=== PATIENT | female | born 1950 | race Caucasian/White ===

== ENCOUNTER → 2016-03-20 | Outpatient (REF) | payer MEDICARE, OTHER ==
[2016-03-20 12:25] LABS: FREE T4 1.08 NG/DL (0.76-1.46)
== END ==
LOC: M LABDRAW1 11:21
PROVIDERS: ATTEND Physician Assistant Medical
DX: E06.3 Autoimmune thyroiditis (principal); E78.00 Pure hypercholesterolemia, unspecified

== ENCOUNTER → 2016-03-27 | Outpatient (CLI) | payer MEDICARE, OTHER ==
--- NOTE | 2016-03-28 10:54 | DEXA ---
AP SPINE L1 - L4 1.057 -1.1 0.3 LT FEMUR TOTAL 0.857 -1.1 0.0 RT FEMUR TOTAL 0.894 -0.9 0.2 TOTAL BODY TOTAL OTHER DUAL FEMUR FRAX* ASSESSMENT Risk factors: History of multiple adult fractures, premature menopause. 10 year probability of fracture Major osteoporotic fracture 14.6 % Hip fracture 1.5 % COMMENTS: There is low bone density of the spine and hips. The density of the spine has decreased 1.6% since the initial exam on 2003. The spine density has decreased 1.2% since the most recent exam on 03/24/2014. The density of the left hip has decreased 4.1% since the initial exam on 2003. The density left hip has decreased 2.0% since the most recent exam on 2014. The density of the right hip has decreased 2.0% since the initial exam on 2003. The density of the right hip has increased 4.4% since the most recent exam on . FOLLOW-UP: Recommendation for the next bone density exam: 2 years. DAVIAN
== END ==
LOC: M WHC 09:22
PROVIDERS: ATTEND Internal Medicine Endocrinology, Diabetes & Metabolism
DX: M85.89 Other specified disorders of bone density and structure, multiple sites (principal)

== ENCOUNTER → 2016-06-20 | Outpatient (CLI) | payer MEDICARE, OTHER ==
--- NOTE | 2016-06-20 13:50 | REPMRS ---
Patient History The patient states she had a clinical breast exam in 2015. Patient is postmenopausal. Family history of colorectal cancer in father at age 72, breast cancer in maternal aunt at age 50 or over, and breast cancer in maternal aunt at age 40. Benign US guided breast biopsy of the left breast, May 09, 2014. Took hormonal contraceptives for 7 years. Taking unspecified hormones for 11 years. Digital Mammo Diagnostic Bilateral: June 20, 2016 - Exam #: [id number] Bilateral CC and MLO view(s) were taken. Technologist: Adrianna Law, Technologist Prior study comparison: March 24, 2015, digital woman screen mammo, performed at [facility]. May 09, 2014, left breast digital mammo diagnostic unilateral performed at [facility]. FINDINGS: There are scattered fibroglandular densities. There is a fairly symmetric fibroglandular pattern in both breasts. There has been no interval development of masses, areas of architectural distortion or clusters of microcalcifications typical of malignancy. ASSESSMENT: BI-RADS/ACR category 2 mammogram. Benign finding(s). Recommendation Routine screening mammogram of both breasts in 1 year (for women over age 40). This mammogram was interpreted with the aid of an FDA-approved computer-aided dectection system. Electronically Signed By: Ata Miranda MD 06/20/16 [id number]
== END ==
LOC: M RAD 12:48
PROVIDERS: ATTEND Family Medicine
DX: N63 Unspecified lump in breast (principal); R92.1 Mammographic calcification found on diagnostic imaging of breast; Z12.31 Encounter for screening mammogram for malignant neoplasm of breast; Z80.3 Family history of malignant neoplasm of breast; Z79.899 Other long term (current) drug therapy

== ENCOUNTER → 2016-09-13 | Outpatient (REF) | payer MEDICARE, OTHER ==
[2016-09-13 11:37] LABS: BASO # 0.1 K/mm3 (0.0-0.2); BASO % 1.1 % (0.0-1.0); EOS # 0.1 K/mm3 (0.0-0.50); LARGE UNSTAINED CELL # 0.1 K/mm3 (0.0-0.4); LARGE UNSTAINED CELL % 1.8 % (0.0-4.0); LYMPH # 1.5 K/mm3 (1.5-4.5); LYMPH % 26.1 % (24.0-44.0); MEAN CORPUSCULAR HEMOGLOBIN 30.9 pg (27.0-33.0); MEAN CORPUSCULAR HGB CONC 34.6 g/dl (32.0-36.5); MEAN CORPUSCULAR VOLUME 89.1 fl (80.0-96.0); MONO # 0.3 K/mm3 (0.0-0.8); MONO % 5.4 % (0.0-5.0); NEUTROPHILS # 3.4 K/mm3 (1.8-7.7); NEUTROPHILS % 63.6 % (36.0-66.0); PLATELET COUNT, AUTOMATED 169 k/mm3 (150-450); WHITE BLOOD COUNT 5.3 K/mm3 (4.0-10.0)
[2016-09-13 12:06] LABS: ALBUMIN 3.9 GM/DL (3.2-5.2); ALBUMIN/GLOBULIN RATIO 1.22 (1.00-1.93); ALKALINE PHOSPHATASE 78 U/L (45-117); ALT/SGPT 26 U/L (12-78); ANION GAP 9 MEQ/L (8-16); AST/SGOT 20 U/L (15-37); BILIRUBIN,TOTAL 0.4 MG/DL (0.2-1.0); BLOOD UREA NITROGEN 21 MG/DL (7-18); CALCIUM LEVEL 8.7 MG/DL (8.8-10.2); CARBON DIOXIDE LEVEL 29 MEQ/L (21-32); CHLORIDE LEVEL 102 MEQ/L (98-107); CHOLESTEROL LEVEL 176 MG/DL (<200); CREATININE FOR GFR 0.82 MG/DL (0.55-1.02); FREE T4 0.99 NG/DL (0.76-1.46); GLOMERULAR FILTRATION RATE > 60.0 (>45); GLUCOSE, FASTING 90 MG/DL (80-110); POTASSIUM SERUM 4.3 MEQ/L (3.5-5.1); SODIUM LEVEL 140 MEQ/L (136-145); TOTAL PROTEIN 7.1 GM/DL (6.4-8.2); TRIGLYCERIDES LEVEL 66 MG/DL (<150)
== END ==
LOC: M LABDRAW1 11:14
PROVIDERS: ATTEND Family Medicine
DX: E78.5 Hyperlipidemia, unspecified (principal); E03.9 Hypothyroidism, unspecified

== ENCOUNTER → 2016-10-11 | Outpatient (REF) | payer MEDICARE, OTHER | LOC: M LAB REF 14:12 | PROVIDERS: ATTEND Physician Assistant | DX: J06.9 Acute upper respiratory infection, unspecified (principal) ==

== ENCOUNTER → 2017-03-14 | Outpatient (CLI) | payer MEDICARE, OTHER ==
[2017-03-14 21:06] LABS: CHOLESTEROL LEVEL 178 MG/DL (<200); CHOLESTEROL RISK RATIO 3.632 (<5); HDL CHOLESTEROL 49 MG/DL (>40); LDL CHOLESTEROL 83.6 MG/DL (<100); NON-HDL-C 129 MG/DL; TRIGLYCERIDES LEVEL 227 MG/DL (<150)
[2017-03-14 21:20] LABS: TOTAL 25(OH) VITAMIN D 37.9 NG/ML (30.0-100.0)
== END ==
LOC: M WUC 14:21
DX: E06.3 Autoimmune thyroiditis (principal); E78.00 Pure hypercholesterolemia, unspecified; E55.9 Vitamin D deficiency, unspecified
CPT/HCPCS: 84443

== ENCOUNTER → 2017-04-29 | Outpatient (REF) | payer MEDICARE, OTHER ==
[2017-04-29 15:32] LABS: HEMATOCRIT 40.5 % (36.0-47.0); HEMOGLOBIN 13.6 g/dl (12.0-16.0); MEAN CORPUSCULAR HEMOGLOBIN 28.3 pg (27.0-33.0); MEAN CORPUSCULAR HGB CONC 33.6 g/dl (32.0-36.5); MEAN CORPUSCULAR VOLUME 84.2 fl (80.0-96.0); PLATELET COUNT, AUTOMATED 200 10^3/uL (150-450); RED BLOOD COUNT 4.81 10^6/uL (4.00-5.40); RED CELL DISTRIBUTION WIDTH 12.8 % (11.5-14.5); WHITE BLOOD COUNT 6.3 10^3/uL (4.0-10.0)
[2017-04-29 15:50] LABS: TOTAL 25(OH) VITAMIN D 49.3 NG/ML (30.0-100.0)
[2017-04-29 15:55] LABS: ALBUMIN 4.1 GM/DL (3.2-5.2); ALBUMIN/GLOBULIN RATIO 1.21 (1.00-1.93); ALKALINE PHOSPHATASE 77 U/L (45-117); ALT/SGPT 25 U/L (12-78); ANION GAP 9 MEQ/L (8-16); AST/SGOT 20 U/L (7-37); BILIRUBIN,TOTAL 0.3 MG/DL (0.2-1.0); BLOOD UREA NITROGEN 20 MG/DL (7-18); CALCIUM LEVEL 9.5 MG/DL (8.8-10.2); CARBON DIOXIDE LEVEL 28 MEQ/L (21-32); CHLORIDE LEVEL 104 MEQ/L (98-107); GLOMERULAR FILTRATION RATE > 60.0 (>45); GLUCOSE, FASTING 82 MG/DL (70-100); POTASSIUM SERUM 4.3 MEQ/L (3.5-5.1); SODIUM LEVEL 141 MEQ/L (136-145); THYROID STIMULATING HORMONE 0.339 uIU/ML (0.358-3.740); TOTAL PROTEIN 7.5 GM/DL (6.4-8.2)
== END ==
LOC: M LABDRAW1 14:13
DX: M72.2 Plantar fascial fibromatosis (principal); L20.9 Atopic dermatitis, unspecified; E55.9 Vitamin D deficiency, unspecified
CPT/HCPCS: 84443

== ENCOUNTER → 2017-05-05 | Outpatient (REF) | payer MEDICARE, OTHER ==
[2017-05-05 20:09] LABS: APPEARANCE, URINE HAZY (CLEAR); BACTERIA, URINE AUTO 2+ (NEGATIVE); BILIRUBIN, URINE AUTO NEGATIVE (NEGATIVE); BLOOD, URINE BLOOD 2+ (NEGATIVE); COLOR, URINE YELLOW (YELLOW); GLUCOSE, URINE (UA) AUTO NEGATIVE (NEGATIVE); KETONE, URINE AUTO NEGATIVE (NEGATIVE); LEUKOCYTE ESTERASE, URINE AUTO 3+ (NEGATIVE); MUCUS, URINE SMALL (NEGATIVE); NITRITE, URINE AUTO NEGATIVE (NEGATIVE); PROTEIN, URINE AUTO NEGATIVE (NEGATIVE); RBC, URINE AUTO 17 /HPF (0-3); SPECIFIC GRAVITY URINE AUTO 1.014 (1.002-1.035); SQUAMOUS EPITHELIAL CELL UR AU 0 /HPF (0-6); UROBILINOGEN, URINE AUTO 0.2 mg/dL (0.0-2.0); WBC, URINE AUTO 142 /HPF (0-3)
== END ==
LOC: M LAB REF 19:30
DX: R30.0 Dysuria (principal)
CPT/HCPCS: 81001

== ENCOUNTER → 2017-06-23 | Outpatient (CLI) | payer MEDICARE, OTHER | LOC: M WHC 09:01 | DX: Z12.31 Encounter for screening mammogram for malignant neoplasm of breast (principal) | CPT/HCPCS: 77067 ==

== ENCOUNTER → 2017-07-15 | Outpatient (REF) | payer MEDICARE, OTHER ==
[2017-07-15 13:42] LABS: APPEARANCE, URINE HAZY (CLEAR); BACTERIA, URINE AUTO 1+ (NEGATIVE); BILIRUBIN, URINE AUTO NEGATIVE (NEGATIVE); BLOOD, URINE BLOOD 2+ (NEGATIVE); COLOR, URINE YELLOW (YELLOW); GLUCOSE, URINE (UA) AUTO NEGATIVE (NEGATIVE); KETONE, URINE AUTO NEGATIVE (NEGATIVE); LEUKOCYTE ESTERASE, URINE AUTO 3+ (NEGATIVE); MUCUS, URINE SMALL (NEGATIVE); NITRITE, URINE AUTO NEGATIVE (NEGATIVE); PROTEIN, URINE AUTO NEGATIVE (NEGATIVE); RBC, URINE AUTO 3 /HPF (0-3); SPECIFIC GRAVITY URINE AUTO 1.011 (1.002-1.035); SQUAMOUS EPITHELIAL CELL UR AU 0 /HPF (0-6); UROBILINOGEN, URINE AUTO 0.2 mg/dL (0.0-2.0); WBC, URINE AUTO TNTC /HPF (0-3)
== END ==
LOC: M LAB REF 13:05
DX: N39.0 Urinary tract infection, site not specified (principal)
CPT/HCPCS: 81001

== ENCOUNTER → 2017-09-15 | Outpatient (CLI) | payer MEDICARE, OTHER | LOC: M SMT 14:27 | DX: M25.552 Pain in left hip (principal) | CPT/HCPCS: 73502 ==

== ENCOUNTER → 2017-09-18 | Outpatient (REF) | payer MEDICARE, OTHER ==
[2017-09-18 14:11] LABS: BASO % 0.7 % (0.0-1.0); EOS # 0.1 10^3/uL (0.0-0.50); EOS % 1.7 % (0.0-3.0); HEMATOCRIT 39.3 % (36.0-47.0); HEMOGLOBIN 13.5 g/dl (12.0-15.5); IMMATURE GRANULOCYTE % 0.2 % (0-3.0); LYMPH # 1.9 10^3/uL (1.5-4.5); LYMPH % 32.3 % (24.0-44.0); MEAN CORPUSCULAR HGB CONC 34.4 g/dl (32.0-36.5); MEAN CORPUSCULAR VOLUME 87.3 fl (80.0-96.0); MONO # 0.5 10^3/uL (0.0-0.8); MONO % 8.2 % (0.0-5.0); NEUTROPHILS # 3.3 10^3/uL (1.8-7.7); NEUTROPHILS % 56.9 % (36.0-66.0); PLATELET COUNT, AUTOMATED 178 10^3/uL (150-450); RED CELL DISTRIBUTION WIDTH 13.2 % (11.5-14.5); WHITE BLOOD COUNT 5.8 10^3/uL (4.0-10.0)
[2017-09-18 14:31] LABS: ALBUMIN 3.8 GM/DL (3.2-5.2); ALBUMIN/GLOBULIN RATIO 1.27 (1.00-1.93); ALKALINE PHOSPHATASE 76 U/L (45-117); ALT/SGPT 32 U/L (12-78); ANION GAP 6 MEQ/L (8-16); AST/SGOT 23 U/L (7-37); BILIRUBIN,TOTAL 0.5 MG/DL (0.2-1.0); BLOOD UREA NITROGEN 17 MG/DL (7-18); CALCIUM LEVEL 8.5 MG/DL (8.8-10.2); CARBON DIOXIDE LEVEL 29 MEQ/L (21-32); CHLORIDE LEVEL 108 MEQ/L (98-107); CHOLESTEROL LEVEL 175 MG/DL (<200); CHOLESTEROL RISK RATIO 3.125 (<5); CREATININE FOR GFR 0.79 MG/DL (0.55-1.30); GLOMERULAR FILTRATION RATE > 60.0 (>45); GLUCOSE, FASTING 78 MG/DL (70-100); HDL CHOLESTEROL 56 MG/DL (>40); LDL CHOLESTEROL 103.2 MG/DL (<100); NON-HDL-C 119 MG/DL; POTASSIUM SERUM 4.2 MEQ/L (3.5-5.1); SODIUM LEVEL 143 MEQ/L (136-145); TOTAL PROTEIN 6.8 GM/DL (6.4-8.2); TRIGLYCERIDES LEVEL 79 MG/DL (<150)
== END ==
LOC: M LABDRAW1 13:53
DX: E78.5 Hyperlipidemia, unspecified (principal); K21.9 Gastro-esophageal reflux disease without esophagitis; E03.9 Hypothyroidism, unspecified; E06.3 Autoimmune thyroiditis
CPT/HCPCS: 84443

== ENCOUNTER → 2017-09-18 | Outpatient (REF) | payer MEDICARE, OTHER ==
[2017-09-18 14:39] LABS: FREE T4 1.24 NG/DL (0.76-1.46); THYROID STIMULATING HORMONE 0.493 uIU/ML (0.358-3.740)
== END ==
LOC: M LABDRAW1 11:49
DX: E06.3 Autoimmune thyroiditis (principal); E78.5 Hyperlipidemia, unspecified; K21.9 Gastro-esophageal reflux disease without esophagitis; E03.9 Hypothyroidism, unspecified

== ENCOUNTER → 2017-10-29 | Outpatient (REF) | payer MEDICARE, OTHER | LOC: M LAB REF 17:13 | DX: N39.0 Urinary tract infection, site not specified (principal) | CPT/HCPCS: 87186 ==

== ENCOUNTER → 2018-03-26 | Outpatient (CLI) | payer MEDICARE, OTHER ==
[2018-03-26 10:50] LABS: FREE T4 1.05 NG/DL (0.76-1.46); THYROID STIMULATING HORMONE 2.21 uIU/ML (0.358-3.740)
== END ==
LOC: M LAB 09:49
PROVIDERS: ATTEND Nurse Practitioner Family
DX: E06.3 Autoimmune thyroiditis (principal)

== ENCOUNTER → 2018-07-24 | Outpatient (CLI) | payer MEDICARE, OTHER ==
--- NOTE | 2018-07-24 15:14 | REPMRS ---
Patient History The patient states she has not had a clinical breast exam in over a year. Patient is postmenopausal. Family history of breast cancer at age 40 in maternal aunt, colorectal cancer at age 72 in father, breast cancer at age 50 or over in maternal aunt. Benign US guided breast biopsy of the left breast, May 09, 2014. Took hormonal contraceptives for 7 years. Taking unspecified hormones for 12 years. 3D TOMOSYNTHESIS WAS PERFORMED. Digital Woman Screen Mammo: July 24, 2018 - Exam #: [id number] Bilateral CC and MLO view(s) were taken. Technologist: Hanane Dc, Technologist Prior study comparison: June 23, 2017, digital woman screen mammo performed at [facility]. June 20, 2016, digital mammo diagnostic bilateral, performed at [facility]. FINDINGS: There are scattered fibroglandular densities. There is a fairly symmetric fibroglandular pattern in both breasts. There has been no interval development of masses, areas of architectural distortion or clusters of microcalcifications typical of malignancy. Assessment: BI-RADS/ACR category 2 mammogram. Benign Findings. Recommendation Routine screening mammogram of both breasts in 1 year (for women over age 40). This mammogram was interpreted with the aid of an FDA-approved computer-aided dectection system. Electronically Signed By: Ata Miranda MD 07/24/18 [id number]
== END ==
LOC: M WHC 13:31
PROVIDERS: ATTEND Family Medicine
DX: Z12.31 Encounter for screening mammogram for malignant neoplasm of breast (principal); Z78.0 Asymptomatic menopausal state; Z92.0 Personal history of contraception

== ENCOUNTER → 2018-09-30 | Outpatient (REF) | payer MEDICARE, OTHER ==
[2018-09-30 15:13] LABS: FREE T4 1.36 NG/DL (0.76-1.46); THYROID STIMULATING HORMONE 0.592 uIU/ML (0.358-3.740); TOTAL 25(OH) VITAMIN D 64.9 NG/ML (30.0-100.0)
== END ==
LOC: M LABDRAW1 08:28
PROVIDERS: ATTEND Nurse Practitioner Family
DX: E06.3 Autoimmune thyroiditis (principal); E55.9 Vitamin D deficiency, unspecified

== ENCOUNTER → 2019-03-09 | Outpatient (REF) | payer MEDICARE, OTHER ==
[2019-03-09 18:29] LABS: BASO % 0.5 % (0.0-1.0); EOS # 0.1 10^3/uL (0.0-0.5); EOS % 0.9 % (0.0-3.0); HEMATOCRIT 37.5 % (36.0-47.0); HEMOGLOBIN 12.1 g/dl (12.0-15.5); LYMPH # 1.6 10^3/uL (1.5-5.0); LYMPH % 25.1 % (24.0-44.0); MEAN CORPUSCULAR HEMOGLOBIN 28.7 pg (27.0-33.0); MEAN CORPUSCULAR HGB CONC 32.3 g/dl (32.0-36.5); MEAN CORPUSCULAR VOLUME 88.9 fl (80.0-96.0); MONO # 0.5 10^3/uL (0.0-0.8); MONO % 6.9 % (0.0-5.0); NEUTROPHILS # 4.3 10^3/uL (1.5-8.5); NEUTROPHILS % 66.3 % (36.0-66.0); PLATELET COUNT, AUTOMATED 222 10^3/uL (150-450); RED BLOOD COUNT 4.22 10^6/uL (4.00-5.40); WHITE BLOOD COUNT 6.5 10^3/uL (4.0-10.0)
[2019-03-09 18:40] LABS: ALBUMIN 3.9 GM/DL (3.2-5.2); ALT/SGPT 24 U/L (12-78); BILIRUBIN,TOTAL 0.4 MG/DL (0.2-1.0); BLOOD UREA NITROGEN 22 MG/DL (7-18); CALCIUM LEVEL 8.8 MG/DL (8.8-10.2); CARBON DIOXIDE LEVEL 29 MEQ/L (21-32); CHLORIDE LEVEL 106 MEQ/L (98-107); CHOLESTEROL LEVEL 239 MG/DL (<200); CHOLESTEROL RISK RATIO 4.596 (<5); CREATININE FOR GFR 0.91 MG/DL (0.55-1.30); FREE T4 1.28 NG/DL (0.76-1.46); GLOMERULAR FILTRATION RATE > 60.0 (>45); GLUCOSE, FASTING 81 MG/DL (70-100); HDL CHOLESTEROL 52 MG/DL (>40); LDL CHOLESTEROL 146 MG/DL (<100); NON-HDL-C 187 MG/DL; POTASSIUM SERUM 3.8 MEQ/L (3.5-5.1); SODIUM LEVEL 142 MEQ/L (136-145); TOTAL PROTEIN 6.9 GM/DL (6.4-8.2); TRIGLYCERIDES LEVEL 206 MG/DL (<150)
== END ==
LOC: M LABDRAW1 17:03
PROVIDERS: ATTEND Family Medicine
DX: E78.5 Hyperlipidemia, unspecified (principal); E03.9 Hypothyroidism, unspecified; K21.9 Gastro-esophageal reflux disease without esophagitis

== ENCOUNTER → 2019-03-22 | Outpatient (CLI) | payer MEDICARE, OTHER ==
--- NOTE | 2019-03-24 10:39 | DEXA ---
AP SPINE L1 - L4 1.060 -1.1 0.6 LT FEMUR TOTAL 0.853 -1.2 0.1 LT NECK 0.815 -1.6 0.0 RT FEMUR TOTAL 0.846 -1.3 0.1 RT NECK 0.837 -1.4 0.2 TOTAL BODY TOTAL OTHER COMMENTS: There is low bone density of the spine and hips. The density of the spine has decreased 1.3% since the initial exam on 04/14/2003. The spine density has increased 0.3% since the most recent exam on 03/27/2016. The density of the left hip has decreased 6.1% since the initial exam on 04/14/2003. The density of the left hip has decreased 2.1% since the most recent exam on 03/27/2016. The density of the right hip has decreased 7.2% since the initial exam on 04/14/2003. The density of the right hip has decreased 5.4% since the most recent exam on 03/27/2016. FOLLOW-UP: Recommendation for the next bone density exam: 2 years. DAVIAN
== END ==
LOC: M WHC 10:24
PROVIDERS: ATTEND Physician Assistant Medical
DX: M85.851 Other specified disorders of bone density and structure, right thigh (principal); M85.852 Other specified disorders of bone density and structure, left thigh; M85.88 Other specified disorders of bone density and structure, other site

== ENCOUNTER → 2019-05-19 | Outpatient (REF) | payer MEDICARE, OTHER | LOC: M LAB REF 16:48 | PROVIDERS: ATTEND Physician Assistant | DX: N39.0 Urinary tract infection, site not specified (principal) ==

== ENCOUNTER → 2019-09-07 | Outpatient (CLI) | payer MEDICARE, OTHER ==
[2019-09-07 17:40] LABS: BASO % 0.4 % (0.0-1.0); EOS # 0.2 10^3/uL (0.0-0.5); EOS % 2.4 % (0.0-3.0); HEMATOCRIT 37.3 % (36.0-47.0); HEMOGLOBIN 11.7 g/dl (12.0-15.5); LYMPH # 1.2 10^3/uL (1.5-5.0); LYMPH % 13.7 % (24.0-44.0); MEAN CORPUSCULAR HEMOGLOBIN 27.5 pg (27.0-33.0); MEAN CORPUSCULAR HGB CONC 31.4 g/dl (32.0-36.5); MEAN CORPUSCULAR VOLUME 87.6 fl (80.0-96.0); MONO # 0.6 10^3/uL (0.0-0.8); MONO % 7.4 % (0.0-5.0); NEUTROPHILS # 6.4 10^3/uL (1.5-8.5); NEUTROPHILS % 75.5 % (36.0-66.0); PLATELET COUNT, AUTOMATED 342 10^3/uL (150-450); RED BLOOD COUNT 4.26 10^6/uL (4.00-5.40); WHITE BLOOD COUNT 8.5 10^3/uL (4.0-10.0)
[2019-09-07 17:56] LABS: ALBUMIN 3.1 GM/DL (3.2-5.2); ALT/SGPT 15 U/L (12-78); BILIRUBIN,TOTAL 0.4 MG/DL (0.2-1.0); BLOOD UREA NITROGEN 18 MG/DL (7-18); C REACTIVE PROTEIN QUANTITATIV 6.19 MG/DL (0.00-0.30); CALCIUM LEVEL 8.5 MG/DL (8.8-10.2); CARBON DIOXIDE LEVEL 30 MEQ/L (21-32); CHLORIDE LEVEL 105 MEQ/L (98-107); CPK CREATINE PHOSPHOKINASE 42 U/L (26-192); CREATININE FOR GFR 0.82 MG/DL (0.55-1.30); GLOMERULAR FILTRATION RATE > 60.0 (>45); GLUCOSE, FASTING 74 MG/DL (70-100); POTASSIUM SERUM 4.2 MEQ/L (3.5-5.1); SODIUM LEVEL 138 MEQ/L (136-145)
[2019-09-07 20:56] LABS: ERYTHROCYTE SEDIMENTATION RATE 51 mm/hr (0-30)
[2019-11-03 09:49] LABS: ANA (HEP2) SEE SEPARATE REPORT; Lyme Disease IgG/IgM Antibodie See Separate Report
[2019-11-03 09:50] LABS: ANA CENTRIOLE PATTERN SEE SEPARATE REPORT; ANA MIDBODY PATTERN SEE SEPARATE REPORT; ANA NUCLEAR DOT PATTERN SEE SEPARATE REPORT; ANA NUCLEAR MEMBRANE PATTERN SEE SEPARATE REPORT; ANA PCNA PATTERN SEE SEPARATE REPORT; ANA SPINDLE APPARATUS PATTERN SEE SEPARATE REPORT; CYCLIC CITRULLINATED PEPTIDE See Separate Report UNITS
== END ==
LOC: M PLALAB 15:30
PROVIDERS: ATTEND Physician Assistant
DX: M25.50 Pain in unspecified joint (principal)

== ENCOUNTER → 2019-09-08 | Outpatient (CLI) | payer MEDICARE, OTHER ==
--- NOTE | 2019-09-08 15:04 | REPMRS ---
Patient History The patient states she had a clinical breast exam in March 2019.Family history of breast cancer at age 40 in maternal aunt, colorectal cancer at age 72 in father, breast cancer at age 50 or over in maternal aunt. Benign US guided breast biopsy of the left breast, May 09, 2014. Took hormonal contraceptives for 7 years. Taking unspecified hormones for 12 years. Digital Woman Screen Mammo: September 08, 2019 - Exam #: [id number] Bilateral CC and MLO view(s) were taken. Technologist: Adrianna Law, Technologist Prior study comparison: July 24, 2018, bilateral digital woman screen mammo performed at [facility]. June 23, 2017, digital woman screen mammo performed at [facility]. June 20, 2016, digital mammo diagnostic bilateral, performed at [facility]. FINDINGS: There are scattered fibroglandular densities. The Volpara volumetric breast density category is:B. The needle biopsy marker clip is again visible on the left. There has been no change in the appearance of the mammogram from the prior studies. There is a mild amount of scattered fibroglandular density which is fairly symmetric. There is no interval development of dominant mass, architectural distortion, or grouped microcalcification suggestive of malignancy. 3-D tomosynthesis shows no additional findings. Assessment: BI-RADS/ACR category 2 mammogram. Benign Findings. Recommendation Routine screening mammogram of both breasts in 1 year (for women over age 40). This patient's Lifetime Breast Cancer Risk is estimated at 5.1 %. This mammogram was interpreted with the aid of an FDA-approved computer-aided dectection system. Electronically Signed By: Wilder Luna MD 09/08/19 [id number]
== END ==
LOC: M WHC 13:04
PROVIDERS: ATTEND Obstetrics & Gynecology
DX: Z12.31 Encounter for screening mammogram for malignant neoplasm of breast (principal); Z80.0 Family history of malignant neoplasm of digestive organs; Z92.0 Personal history of contraception

== ENCOUNTER → 2019-09-17 | Outpatient (REF) | payer MEDICARE, OTHER ==
[2019-10-12 11:58] LABS: PTT LUPUS TYPE ANTICOAG SCREEN 1.3 (0-1.2)
[2019-10-12 12:08] LABS: DRVV CONFIRM 39.2 SEC
[2019-10-12 12:39] LABS: NORMALIZED RATIO 1.3 (0.00-1.20)
[2019-10-17 14:07] LABS: HEXAGONAL PHASE PHOSPHOLIPID 0 sec (0-11)
[2019-10-31 08:05] LABS: ANA (HEP2) SEE SEPARATE REPORT; SSA SJOGRENS A SEE SEPARATE REPORT; SSB SJOGRENS B SEE SEPARATE REPORT
[2019-11-04 13:50] LABS: BLOOD UREA NITROGEN 16 MG/DL (7-18); CALCIUM LEVEL 9.2 MG/DL (8.8-10.2); CARBON DIOXIDE LEVEL 29 MEQ/L (21-32); CHLORIDE LEVEL 104 MEQ/L (98-107); CREATININE FOR GFR 0.91 MG/DL (0.55-1.30); GLOMERULAR FILTRATION RATE > 60.0 (>45); GLUCOSE, FASTING 87 MG/DL (70-100); POTASSIUM SERUM 4.2 MEQ/L (3.5-5.1); SODIUM LEVEL 138 MEQ/L (136-145)
[2019-11-04 13:51] LABS: ALBUMIN 3.4 GM/DL (3.2-5.2); ALT/SGPT 19 U/L (12-78); BILIRUBIN,TOTAL 0.5 MG/DL (0.2-1.0); TOTAL PROTEIN 7.3 GM/DL (6.4-8.2)
== END ==
LOC: M PLALAB 08:23
PROVIDERS: ATTEND Physician Assistant
DX: Z00.00 Encounter for general adult medical examination without abnormal findings (principal); R74.8 Abnormal levels of other serum enzymes; E78.5 Hyperlipidemia, unspecified

== ENCOUNTER → 2019-09-29 | Outpatient (REF) | payer MEDICARE, OTHER | LOC: M WUC 12:30 | PROVIDERS: ATTEND Nurse Practitioner Family | DX: E55.9 Vitamin D deficiency, unspecified (principal) ==

== ENCOUNTER → 2019-11-08 | Outpatient (CLI) | payer MEDICARE, OTHER ==
[2019-11-08 17:10] LABS: CREATININE,RANDOM URINE 66.7 MG/DL; TOTAL PROTEIN,RANDOM URINE 10.7 MG/DL (0.0-12.0)
[2019-11-08 17:14] LABS: APPEARANCE, URINE CLEAR (CLEAR); BACTERIA, URINE AUTO 1+ (NEGATIVE); BILIRUBIN, URINE AUTO NEGATIVE (NEGATIVE); BLOOD, URINE BLOOD NEGATIVE (NEGATIVE); COLOR, URINE YELLOW (YELLOW); GLUCOSE, URINE (UA) AUTO NEGATIVE (NEGATIVE); KETONE, URINE AUTO NEGATIVE (NEGATIVE); LEUKOCYTE ESTERASE, URINE AUTO 3+ (NEGATIVE); NITRITE, URINE AUTO NEGATIVE (NEGATIVE); PROTEIN, URINE AUTO NEGATIVE (NEGATIVE); RBC, URINE AUTO 2 /HPF (0-3); RENAL EPITHELIAL CELLS 1 /HPF; SQUAMOUS EPITHELIAL CELL UR AU 1 /HPF (0-6); UROBILINOGEN, URINE AUTO 0.2 mg/dL (0.0-2.0); WBC, URINE AUTO 7 /HPF (0-3)
[2019-11-08 17:39] LABS: BLOOD UREA NITROGEN 14 MG/DL (7-18); C REACTIVE PROTEIN QUANTITATIV 1.52 MG/DL (0.00-0.30); CALCIUM LEVEL 8.5 MG/DL (8.8-10.2); CARBON DIOXIDE LEVEL 27 MEQ/L (21-32); CHLORIDE LEVEL 103 MEQ/L (98-107); COMPLEMENT C3 137 MG/DL (90-180); COMPLEMENT C4 31 MG/DL (10-40); CREATININE FOR GFR 0.78 MG/DL (0.55-1.30); GLOMERULAR FILTRATION RATE > 60.0 (>45); GLUCOSE, FASTING 101 MG/DL (70-100); POTASSIUM SERUM 3.7 MEQ/L (3.5-5.1); SODIUM LEVEL 138 MEQ/L (136-145)
[2019-11-08 17:48] LABS: PTH INTACT 93.1 PG/ML (18.5-88.0)
[2019-11-08 18:06] LABS: BASO # 0.1 10^3/uL (0.0-0.2); BASO % 0.6 % (0.0-1.0); EOS % 0.2 % (0.0-3.0); HEMATOCRIT 36.9 % (36.0-47.0); HEMOGLOBIN 12.1 g/dl (12.0-15.5); LYMPH # 1.4 10^3/uL (1.5-5.0); LYMPH % 16.1 % (24.0-44.0); MEAN CORPUSCULAR HEMOGLOBIN 28.5 pg (27.0-33.0); MEAN CORPUSCULAR HGB CONC 32.8 g/dl (32.0-36.5); MONO # 0.5 10^3/uL (0.0-0.8); MONO % 5.7 % (0.0-5.0); NEUTROPHILS # 6.5 10^3/uL (1.5-8.5); NEUTROPHILS % 76.9 % (36.0-66.0); PLATELET COUNT, AUTOMATED 292 10^3/uL (150-450); RED BLOOD COUNT 4.24 10^6/uL (4.00-5.40); WHITE BLOOD COUNT 8.5 10^3/uL (4.0-10.0)
[2019-11-08 18:43] LABS: ERYTHROCYTE SEDIMENTATION RATE 44 mm/hr (0-30)
[2019-11-09 10:21] LABS: DRVV SCREEN 48.5 SEC
[2019-11-09 10:37] LABS: PTT LUPUS TYPE ANTICOAG SCREEN 1.2 (0-1.2)
[2019-11-09 10:47] LABS: DRVV CONFIRM 38.9 SEC
[2019-11-09 10:59] LABS: NORMALIZED RATIO 1.2 (0.00-1.20)
[2019-11-11 07:09] LABS: BETA-2 GLYCOPROTEIN I ABY IGA <9 (0-25); BETA-2 GLYCOPROTEIN I ABY IGG <9 (0-20); BETA-2 GLYCOPROTEIN I ABY IGM <9 (0-32)
[2019-11-12 13:12] LABS: HEXAGONAL PHASE PHOSPHOLIPID 4 sec (0-11)
[2019-11-18 02:07] LABS: ANTI CENTROMERE ANTIBODY <0.2 AI (0.0-0.9); ANTI SCLERODERMA ANTIBODIES <0.2 AI (0.0-0.9); ANTI-HISTONE ANTIBODIES 1.4 Units (0.0-0.9); COMPLEMENT TOTAL (CH50) > 60 U/mL (>41)
--- NOTE | 2019-11-18 17:13 | REP ---
BILATERAL WRIST SERIES HISTORY: Inflammatory polyarthropathy. TECHNIQUE: Four views of each wrist performed. FINDINGS: No acute fracture or dislocation is seen. Joint spaces appear unremarkable without significant arthritic change. IMPRESSION: Negative bilateral wrist series. MTDD
--- NOTE | 2019-11-18 17:13 | REP ---
LUMBOSACRAL SPINE HISTORY: Low back pain. Inflammatory polyarthropathy. TECHNIQUE: Five views of the lumbosacral spine performed. FINDINGS: There is no compression fracture. There is normal alignment and lumbar lordosis. There is no spondylolysis or spondylolisthesis. There is mild diffuse spurring. There is moderate disc space narrowing with subchondral sclerosis and vacuum at L5-S1. There is sclerosis and spurring at the facets of L4-5 and L5-S1. The posterior elements are intact. IMPRESSION: Degenerative changes, most significantly at L5-S1. MTDD
--- NOTE | 2019-11-18 17:14 | REP ---
BILATERAL HAND SERIES HISTORY: Inflammatory polyarthropathy. TECHNIQUE: Four views of bilateral hands performed. FINDINGS: There is no acute fracture or dislocation bilaterally. On the right, there is no significant diagnosis joint space narrowing. Small linear calcification along the third distal interphalangeal joint laterally may represent mild ligamentous calcification. On the left, I do not see significant degenerative joint space narrowing. There are mild linear calcifications along the third proximal interphalangeal joint medial aspect, which may represent mild ligamentous calcifications. I see no other significant finding. IMPRESSION: There appear to be mild bilateral ligamentous calcifications in the third digits as discussed above. Otherwise, unremarkable bilateral hand series. MTDD
== END ==
LOC: M WUC 15:03
PROVIDERS: ATTEND Internal Medicine
DX: M06.4 Inflammatory polyarthropathy (principal); R76.8 Other specified abnormal immunological findings in serum; E83.51 Hypocalcemia; M54.5 Low back pain; M51.36 Other intervertebral disc degeneration, lumbar region; M51.37 Other intervertebral disc degeneration, lumbosacral region

== ENCOUNTER → 2019-12-31 | Outpatient (CLI) | payer MEDICARE, OTHER ==
[2019-12-31 13:59] LABS: CALCIUM LEVEL 9.2 MG/DL (8.8-10.2)
[2019-12-31 14:20] LABS: PTH INTACT 62.3 PG/ML (18.5-88.0); TOTAL 25(OH) VITAMIN D 65.8 NG/ML (30.0-100.0)
== END ==
LOC: M WUC 10:24
PROVIDERS: ATTEND Internal Medicine
DX: E34.9 Endocrine disorder, unspecified (principal)

== ENCOUNTER → 2019-12-31 | Outpatient (CLI) | payer MEDICARE, OTHER ==
[2019-12-31 13:47] LABS: BASO % 0.6 % (0.0-1.0); EOS # 0.1 10^3/uL (0.0-0.5); EOS % 1.2 % (0.0-3.0); HEMATOCRIT 41.7 % (36.0-47.0); HEMOGLOBIN 13.3 g/dl (12.0-15.5); LYMPH # 1.8 10^3/uL (1.5-5.0); MEAN CORPUSCULAR HEMOGLOBIN 28.2 pg (27.0-33.0); MEAN CORPUSCULAR HGB CONC 31.9 g/dl (32.0-36.5); MEAN CORPUSCULAR VOLUME 88.3 fl (80.0-96.0); MONO # 0.6 10^3/uL (0.0-0.8); MONO % 9.4 % (0.0-5.0); NEUTROPHILS % 61.6 % (36.0-66.0); PLATELET COUNT, AUTOMATED 212 10^3/uL (150-450); RED BLOOD COUNT 4.72 10^6/uL (4.00-5.40); WHITE BLOOD COUNT 6.5 10^3/uL (4.0-10.0)
[2019-12-31 14:07] LABS: ALBUMIN 3.8 GM/DL (3.2-5.2); ALT/SGPT 20 U/L (12-78); BILIRUBIN,TOTAL 0.4 MG/DL (0.2-1.0); BLOOD UREA NITROGEN 20 MG/DL (7-18); CARBON DIOXIDE LEVEL 31 MEQ/L (21-32); CHLORIDE LEVEL 105 MEQ/L (98-107); CHOLESTEROL LEVEL 199 MG/DL (<200); CHOLESTEROL RISK RATIO 3.618 (<5); CREATININE FOR GFR 0.91 MG/DL (0.55-1.30); FREE T4 1.22 NG/DL (0.76-1.46); GLOMERULAR FILTRATION RATE > 60.0 (>45); GLUCOSE, FASTING 87 MG/DL (70-100); HDL CHOLESTEROL 55 MG/DL (>40); LDL CHOLESTEROL 123 MG/DL (<100); NON-HDL-C 144 MG/DL; POTASSIUM SERUM 4.1 MEQ/L (3.5-5.1); SODIUM LEVEL 140 MEQ/L (136-145); TOTAL PROTEIN 7.2 GM/DL (6.4-8.2); TRIGLYCERIDES LEVEL 103 MG/DL (<150)
[2019-12-31 14:30] LABS: ERYTHROCYTE SEDIMENTATION RATE 12 mm/hr (0-30)
== END ==
LOC: M WUC 10:19
PROVIDERS: ATTEND Physician Assistant
DX: E78.5 Hyperlipidemia, unspecified (principal); M25.50 Pain in unspecified joint; E03.9 Hypothyroidism, unspecified; E34.9 Endocrine disorder, unspecified; Z79.899 Other long term (current) drug therapy

== ENCOUNTER → 2020-01-19 | Outpatient (REF) | payer MEDICARE, OTHER | LOC: M LAB REF 17:31 | PROVIDERS: ATTEND Physician Assistant | DX: L57.0 Actinic keratosis (principal) ==

== ENCOUNTER → 2020-04-07 | Outpatient (REF) | payer MEDICARE, OTHER ==
[~2020-04-07] MED LIST: CRAN400C PO; D31000TA2 PO; GLUC1CAP10 PO; HYDR200T3 PO; LEVO88TA3 PO; OCUVCAP2 PO; PRAV40TA2 PO; PRED5PAK2 PO; RA T500C2 PO; REST0.05 OU; VAGI10TA VA
[2020-04-07 17:41] LABS: BLOOD UREA NITROGEN 18 MG/DL (7-18); CALCIUM LEVEL 9.3 MG/DL (8.8-10.2); CARBON DIOXIDE LEVEL 28 MEQ/L (21-32); CHLORIDE LEVEL 104 MEQ/L (98-107); CREATININE FOR GFR 0.88 MG/DL (0.55-1.30); GLOMERULAR FILTRATION RATE > 60.0 (>45); GLUCOSE, FASTING 77 MG/DL (70-100); POTASSIUM SERUM 4.2 MEQ/L (3.5-5.1); SODIUM LEVEL 140 MEQ/L (136-145)
[2020-04-07 17:51] LABS: TOTAL 25(OH) VITAMIN D 39.6 NG/ML (30.0-100.0)
== END ==
LOC: M SFHCRHEU 12:52
PROVIDERS: ATTEND Internal Medicine
DX: E67.3 Hypervitaminosis D (principal); E83.51 Hypocalcemia
CPT/HCPCS: 80048; 82306; G0463

== ENCOUNTER → 2020-04-22 | Outpatient (CLI) | payer MEDICARE, OTHER | LOC: M LABSMTC 09:22 | PROVIDERS: ATTEND Anesthesiology | DX: Z01.812 Encounter for preprocedural laboratory examination (principal); Z20.822 Contact with and (suspected) exposure to COVID-19 ==

== ENCOUNTER 2020-04-27 06:52 | Day surgery (SDC) | payer MEDICARE, OTHER ==
[~2020-04-27] VITALS: Ht 170.2 cm; Wt 68.9 kg
[~2020-04-27 06:52] MED LIST changes: +BSS IRR 500ML/OMIDRIA 4ML IRR BAG (OR ONLY) As Ordered ONE; +DUOVISC (0.50ML VISCOAT/0.55ML PROVISC) OPHTH KIT As Ordered ONE; +POVIDONE-IODINE 5% OPHTH PREP SOL 30ML As Ordered ONE
[2020-04-27] MEDS ORDERED: OFLOXACIN 0.3 % (OCUFLOX) OPTH SOL 5ML OS ONE (07:00)
[2020-04-27] MEDS ORDERED: PROPARACAINE 0.5% OPHTH SOL 15ML OS ONE (07:00)
[2020-04-27] MEDS ORDERED: PHENYLEPHRINE 2.5% OPHTH SOL 2ML OS ONE (07:00)
[2020-04-27] MEDS ORDERED: TROPICAMIDE 1% OPHTH SOLN 2ML OS ONE (07:00)
[2020-04-27] MEDS ORDERED: fentaNYL 100 MCG/2 ML INJECTION (J3010) As Ordered ONE (07:16)
[2020-04-27] MEDS ORDERED: MIDAZOLAM INJ 2MG/2ML VIAL (J2250 PER 1MG) As Ordered ONE (07:16)
[2020-04-27 09:15] VITALS: BP 139/79
--- NOTE | 2020-04-28 12:22 | RO ---
OPERATIVE NOTE DATE OF OPERATION: 04/27/2020 PREOPERATIVE DIAGNOSIS: 1. Visually significant nuclear sclerotic cataract, left eye. POSTOPERATIVE DIAGNOSIS: 1. Visually significant nuclear sclerotic cataract, left eye. PROCEDURE: 1. Cataract extraction with use of phacoemulsification, and placement of intraocular lens, AU00T0, 22.0 D, left eye. SURGEON: Lefty Grande DO ANESTHESIA: Local (Omidria with MAC) COMPLICATIONS: None POSTOPERATIVE CONDITION: Stable INDICATIONS FOR SURGERY: 1. Blurred vision affecting patient's activities of daily living. DESCRIPTION OF PROCEDURE: The patient was seen in the preoperative area and properly identified. The correct operative eye was identified and marked. The patient received topical anesthetic, antibiotics, and topical dilating drops. The patient was then transferred to the operating room. The correct side was re-identified and a time-out was performed. The eye was prepped and draped in a sterile fashion. The eyelids were isolated with Tegaderm tape and the lids were held open with an adjustable speculum. A 1.0mm paracentesis incision was made. Omidria was then injected into the anterior chamber. Viscoelastic was then injected into the anterior chamber through the paracentesis. Using a 2.4mm sharp-tipped keratome, the anterior chamber was entered via a temporal clear cornea incision. A continuous curvilinear capsulorrhexis was created with Utrata forceps. Hydrodissection was performed with BSS on a blunt cannula until the nucleus was able to rotate freely. The crystalline lens was phacoemulsified and aspirated. Irrigation/aspiration was used to remove the cortical material Cohesive viscoelastic was placed into the capsular bag to deepen it. The implant was placed into the capsular bag and allowed to unfold. Placement was confirmed by visualizing the anterior capsulorrhexis. Irrigation/aspiration was used to remove the viscoelastic. The clear corneal incision was hydrated with BSS on a blunt cannula. The lens was well positioned. Intracameral antibiotic was injected into the anterior chamber. The incisions were then tested for leaks and found to be negative. The eye was then palpated for appropriate pressure and adjusted accordingly with BSS. The eyelid speculum was then carefully removed. A shield was placed over the eye. The patient tolerated the procedure well and was discharge to the recovery unit in a stable condition.
== END 2020-04-27 09:36 | disposition home or self-care (01) ==
LOC: M SDC 06:52
PROVIDERS: ATTEND Ophthalmology
DX: H25.12 Age-related nuclear cataract, left eye (principal); E78.5 Hyperlipidemia, unspecified; E03.9 Hypothyroidism, unspecified; M32.9 Systemic lupus erythematosus, unspecified; Z79.899 Other long term (current) drug therapy; Z88.0 Allergy status to penicillin
CPT/HCPCS: 66984; J1097; J2250; J3010; V2632

== ENCOUNTER → 2020-04-29 | Outpatient (CLI) | payer MEDICARE, OTHER ==
[~2020-04-29] MED LIST changes: -BSS IRR 500ML/OMIDRIA 4ML IRR BAG (OR ONLY) As Ordered ONE; -DUOVISC (0.50ML VISCOAT/0.55ML PROVISC) OPHTH KIT As Ordered ONE; -POVIDONE-IODINE 5% OPHTH PREP SOL 30ML As Ordered ONE
== END ==
LOC: M LABSMTC 08:31
PROVIDERS: ATTEND Anesthesiology
DX: Z01.812 Encounter for preprocedural laboratory examination (principal); Z20.822 Contact with and (suspected) exposure to COVID-19

== ENCOUNTER 2020-05-04 09:26 | Day surgery (SDC) | payer MEDICARE, OTHER ==
[~2020-05-04] VITALS: Ht 170.2 cm; Wt 69.8 kg
[~2020-05-04 09:26] MED LIST changes: +DUOVISC (0.50ML VISCOAT/0.55ML PROVISC) OPHTH KIT As Ordered ONE; +OFLOXACIN 0.3 % (OCUFLOX) OPTH SOL 5ML OD ONE; +PHENYLEPHRINE 2.5% OPHTH SOL 2ML OD ONE; +POVIDONE-IODINE 5% OPHTH PREP SOL 30ML As Ordered ONE; +PROPARACAINE 0.5% OPHTH SOL 15ML OD ONE; +TROPICAMIDE 1% OPHTH SOLN 2ML OD ONE
[2020-05-04] MEDS ORDERED: MIDAZOLAM INJ 2MG/2ML VIAL (J2250 PER 1MG) As Ordered ONE (10:28)
[2020-05-04] MEDS ORDERED: fentaNYL 100 MCG/2 ML INJECTION (J3010) As Ordered ONE (10:28)
[2020-05-04] MEDS ORDERED: BSS IRR 500ML/OMIDRIA 4ML IRR BAG (OR ONLY) As Ordered ONE (10:37)
[2020-05-04 11:00] VITALS: BP 112/62
--- NOTE | 2020-05-05 09:34 | RO ---
OPERATIVE NOTE DATE OF OPERATION: 05/04/2020 PREOPERATIVE DIAGNOSIS: 1. Visually significant nuclear sclerotic cataract, right eye. POSTOPERATIVE DIAGNOSIS: 1. Visually significant nuclear sclerotic cataract, right eye. PROCEDURE: 1. Cataract extraction with use of phacoemulsification, and placement of intraocular lens, AU00T0, 21.5 D, right eye. SURGEON: Lefty Grande DO ANESTHESIA: Local (Omidria with MAC) COMPLICATIONS: None POSTOPERATIVE CONDITION: Stable INDICATIONS FOR SURGERY: 1. Blurred vision affecting patient's activities of daily living. DESCRIPTION OF PROCEDURE: The patient was seen in the preoperative area and properly identified. The correct operative eye was identified and marked. The patient received topical anesthetic, antibiotics, and topical dilating drops. The patient was then transferred to the operating room. The correct side was re-identified and a time-out was performed. The eye was prepped and draped in a sterile fashion. The eyelids were isolated with Tegaderm tape and the lids were held open with an adjustable speculum. A 1.0mm paracentesis incision was made. Omidria was then injected into the anterior chamber. Viscoelastic was then injected into the anterior chamber through the paracentesis. Using a 2.4mm sharp-tipped keratome, the anterior chamber was entered via a temporal clear cornea incision. A continuous curvilinear capsulorrhexis was created with Utrata forceps. Hydrodissection was performed with BSS on a blunt cannula until the nucleus was able to rotate freely. The crystalline lens was phacoemulsified and aspirated. Irrigation/aspiration was used to remove the cortical material Cohesive viscoelastic was placed into the capsular bag to deepen it. The implant was placed into the capsular bag and allowed to unfold. Placement was confirmed by visualizing the anterior capsulorrhexis. Irrigation/aspiration was used to remove the viscoelastic. The clear corneal incision was hydrated with BSS on a blunt cannula. The lens was well positioned. Intracameral antibiotic was injected into the anterior chamber. The incisions were then tested for leaks and found to be negative. The eye was then palpated for appropriate pressure and adjusted accordingly with BSS. The eyelid speculum was then carefully removed. A shield was placed over the eye. The patient tolerated the procedure well and was discharge to the recovery unit in a stable condition.
== END 2020-05-04 11:48 | disposition home or self-care (01) ==
LOC: M SDC 09:26
PROVIDERS: ATTEND Ophthalmology
DX: H25.11 Age-related nuclear cataract, right eye (principal); E78.5 Hyperlipidemia, unspecified; E03.9 Hypothyroidism, unspecified; M32.9 Systemic lupus erythematosus, unspecified; Z79.899 Other long term (current) drug therapy; Z88.0 Allergy status to penicillin
CPT/HCPCS: 66984; J1097; J2250; J3010; V2632

== ENCOUNTER → 2020-05-05 | Outpatient (CLI) | payer MEDICARE, OTHER ==
[~2020-05-05] MED LIST changes: -DUOVISC (0.50ML VISCOAT/0.55ML PROVISC) OPHTH KIT As Ordered ONE; -OFLOXACIN 0.3 % (OCUFLOX) OPTH SOL 5ML OD ONE; -PHENYLEPHRINE 2.5% OPHTH SOL 2ML OD ONE; -POVIDONE-IODINE 5% OPHTH PREP SOL 30ML As Ordered ONE; -PROPARACAINE 0.5% OPHTH SOL 15ML OD ONE; -TROPICAMIDE 1% OPHTH SOLN 2ML OD ONE
[2020-05-05 12:32] LABS: BLOOD UREA NITROGEN 16 MG/DL (7-18); CALCIUM LEVEL 8.7 MG/DL (8.8-10.2); CARBON DIOXIDE LEVEL 29 MEQ/L (21-32); CHLORIDE LEVEL 108 MEQ/L (98-107); CHOLESTEROL LEVEL 169 MG/DL (<200); CHOLESTEROL RISK RATIO 2.485 (<5); CREATININE FOR GFR 0.68 MG/DL (0.55-1.30); GLOMERULAR FILTRATION RATE > 60.0 (>45); GLUCOSE, FASTING 72 MG/DL (70-100); HDL CHOLESTEROL 68 MG/DL (>40); LDL CHOLESTEROL 86 MG/DL (<100); NON-HDL-C 101 MG/DL; POTASSIUM SERUM 3.7 MEQ/L (3.5-5.1); SODIUM LEVEL 142 MEQ/L (136-145); TRIGLYCERIDES LEVEL 75 MG/DL (<150)
== END ==
LOC: M WUC 09:24
PROVIDERS: ATTEND Physician Assistant
DX: E78.5 Hyperlipidemia, unspecified (principal)

== ENCOUNTER → 2020-07-07 | Outpatient (REF) | payer MEDICARE, OTHER ==
[2020-07-07 16:50] LABS: APPEARANCE, URINE TURBID (CLEAR); BACTERIA, URINE AUTO NEGATIVE (NEGATIVE); BILIRUBIN, URINE AUTO NEGATIVE (NEGATIVE); BLOOD, URINE BLOOD NEGATIVE (NEGATIVE); COLOR, URINE AMBER (YELLOW); GLUCOSE, URINE (UA) AUTO NEGATIVE (NEGATIVE); KETONE, URINE AUTO TRACE mg/dL (NEGATIVE); LEUKOCYTE ESTERASE, URINE AUTO 2+ (NEGATIVE); MUCUS, URINE SMALL (NEGATIVE); NITRITE, URINE AUTO NEGATIVE (NEGATIVE); PROTEIN, URINE AUTO NEGATIVE (NEGATIVE); RBC, URINE AUTO 0 /HPF (0-3); SPECIFIC GRAVITY URINE AUTO 1.024 (1.002-1.035); SQUAMOUS EPITHELIAL CELL UR AU 3 /HPF (0-6); UROBILINOGEN, URINE AUTO 0.2 mg/dL (0.0-2.0); WBC, URINE AUTO 1 /HPF (0-3)
[2020-07-07 16:51] LABS: BASO % 0.7 % (0.0-1.0); EOS # 0.1 10^3/uL (0.0-0.5); EOS % 1.1 % (0.0-3.0); HEMATOCRIT 41.8 % (36.0-47.0); HEMOGLOBIN 13.3 g/dl (12.0-15.5); LYMPH # 1.5 10^3/uL (1.5-5.0); LYMPH % 27.7 % (24.0-44.0); MEAN CORPUSCULAR HEMOGLOBIN 28.1 pg (27.0-33.0); MEAN CORPUSCULAR HGB CONC 31.8 g/dl (32.0-36.5); MEAN CORPUSCULAR VOLUME 88.4 fl (80.0-96.0); MONO # 0.5 10^3/uL (0.0-0.8); MONO % 9.9 % (2.0-8.0); NEUTROPHILS # 3.2 10^3/uL (1.5-8.5); NEUTROPHILS % 60.2 % (36.0-66.0); PLATELET COUNT, AUTOMATED 210 10^3/uL (150-450); RED BLOOD COUNT 4.73 10^6/uL (4.00-5.40); WHITE BLOOD COUNT 5.3 10^3/uL (4.0-10.0)
[2020-07-07 17:23] LABS: BLOOD UREA NITROGEN 18 MG/DL (7-18); CALCIUM LEVEL 9.2 MG/DL (8.8-10.2); CARBON DIOXIDE LEVEL 29 MEQ/L (21-32); CHLORIDE LEVEL 107 MEQ/L (98-107); COMPLEMENT C3 95 MG/DL (90-180); COMPLEMENT C4 29 MG/DL (10-40); CREATININE FOR GFR 0.83 MG/DL (0.55-1.30); GLOMERULAR FILTRATION RATE > 60.0 (>45); GLUCOSE, FASTING 79 MG/DL (70-100); POTASSIUM SERUM 4.1 MEQ/L (3.5-5.1); SODIUM LEVEL 141 MEQ/L (136-145); TOTAL PROTEIN,RANDOM URINE 18.2 MG/DL (0.0-12.0)
[2020-07-10 15:14] LABS: ANTI DS-DNA AB Negative (Negative); COMPLEMENT TOTAL (CH50) > 60 U/mL (>41)
== END ==
LOC: M SFHCRHEU 13:04
PROVIDERS: ATTEND Internal Medicine
DX: M32.9 Systemic lupus erythematosus, unspecified (principal); E67.3 Hypervitaminosis D; E83.51 Hypocalcemia
CPT/HCPCS: 80048; 81001; 82306; 82570; 84156; 85025; 86160; 86162; 86225; G0463

== ENCOUNTER → 2020-09-12 | Outpatient (CLI) | payer MEDICARE, OTHER ==
--- NOTE | 2020-09-13 10:00 | REPMRS ---
Patient History The patient states she has not had a clinical breast exam in over a year. Family history of breast cancer at age 40 in maternal aunt, colorectal cancer at age 72 in father, breast cancer at age 50 or over in maternal aunt. Benign US guided breast biopsy of the left breast, May 09, 2014. Took hormonal contraceptives for 7 years. Taking unspecified hormones for 12 years. Pfizer vaccine 03/2020 left arm, 04/19/20 left arm. 20 lb intentional weight loss. Benign US guided bx of the left breast, May 09, 2014. Patient states no breast complaints today. Patient has signed MRS History Sheet. Digital Woman Screen Mammo: September 12, 2020 - Exam #: [id number] Bilateral CC and MLO view(s) were taken. Technologist: RT Evert Prior study comparison: September 08, 2019, bilateral digital woman screen mammo performed at [facility]. July 24, 2018, bilateral digital woman screen mammo performed at [facility]. FINDINGS: There are scattered fibroglandular densities. Screening. Digital screening (2D) mammography was performed bilaterally in the CC and MLO projections. Additionally, breast tomosynthesis (3D mammography) was performed bilaterally in the CC and MLO projections. Todays exam was compared to the prior exam/exams. By history, the patient has no complaints of a palpable breast abnormality or other significant breast complaints. The breasts are unchanged in size and shape. There are no nneka-soft tissue densities or spiculated masses. There is no internal architectural distortion.Once again, stable benign appearing calcifications are seen. There are no suspicious nneka-calcific clusters. Skin thickening or nipple retraction is not present. IMPRESSION: BI-RADS Category 2- Benign Findings. There is no evidence of malignant alteration of the breasts. Followup examination recommended in one year. This mammogram was read with the assistance of Lucky Pai,an FDA approved computer aided detection system for mammography. The Volpara volumetric breast density category is B, there are scattered areas of fibroglandular densities. Negative x-ray reports should not delay surgical consultation if a dominant or clinically suspicious mass is present. The lifetime Tyrer-Cuzick score is 4.8 % Not all breast cancers can be identified by mammography. Therefore, we recommend that you continue to perform regular breast self-examination and physical examination and then promptly contact your physician of any concerns or changes. Adenosis and dense breasts may obscure an underlying neoplasm. Assessment: BI-RADS/ACR category 2 mammogram. Benign Findings. Recommendation Routine screening mammogram of both breasts in 1 year. Electronically Signed By: Abner Tillman DO 09/13/20 [id number]
== END ==
LOC: M WHC 09:01
PROVIDERS: ATTEND Family Medicine
DX: Z12.31 Encounter for screening mammogram for malignant neoplasm of breast (principal); Z80.3 Family history of malignant neoplasm of breast; Z80.0 Family history of malignant neoplasm of digestive organs; R92.1 Mammographic calcification found on diagnostic imaging of breast

== ENCOUNTER → 2020-09-20 | Outpatient (REF) | payer MEDICARE, OTHER | LOC: M LAB REF 17:39 | PROVIDERS: ATTEND Family Medicine | DX: N39.0 Urinary tract infection, site not specified (principal); Z79.51 Long term (current) use of inhaled steroids; E55.9 Vitamin D deficiency, unspecified; E06.3 Autoimmune thyroiditis; Z79.52 Long term (current) use of systemic steroids; Z79.899 Other long term (current) drug therapy ==

== ENCOUNTER → 2020-09-20 | Outpatient (CLI) | payer MEDICARE, OTHER ==
[2020-09-20 16:01] LABS: FREE T4 1.25 NG/DL (0.76-1.46); THYROID STIMULATING HORMONE 2.28 uIU/ML (0.358-3.740)
[2020-09-20 16:04] LABS: TOTAL 25(OH) VITAMIN D 62.2 NG/ML (30.0-100.0)
== END ==
LOC: M PLALAB 13:58
PROVIDERS: ATTEND Nurse Practitioner Family
DX: E55.9 Vitamin D deficiency, unspecified (principal); E06.3 Autoimmune thyroiditis; Z79.52 Long term (current) use of systemic steroids; Z79.899 Other long term (current) drug therapy

== ENCOUNTER → 2020-11-15 | Outpatient (REF) | payer MEDICARE, OTHER | LOC: M LAB REF 16:56 | PROVIDERS: ATTEND Physician Assistant | DX: J06.9 Acute upper respiratory infection, unspecified (principal) ==

== ENCOUNTER → 2020-11-28 | Outpatient (CLI) | payer MEDICARE, OTHER ==
[2020-11-28 10:37] LABS: BASO % 0.8 % (0.0-1.0); EOS # 0.1 10^3/uL (0.0-0.5); EOS % 1.6 % (0.0-3.0); HEMATOCRIT 34.2 % (36.0-47.0); LYMPH # 1.3 10^3/uL (1.5-5.0); LYMPH % 26.7 % (24.0-44.0); MEAN CORPUSCULAR HEMOGLOBIN 27.7 pg (27.0-33.0); MEAN CORPUSCULAR HGB CONC 32.2 g/dl (32.0-36.5); MEAN CORPUSCULAR VOLUME 86.1 fl (80.0-96.0); MONO # 0.5 10^3/uL (0.0-0.8); MONO % 9.2 % (2.0-8.0); NEUTROPHILS % 61.5 % (36.0-66.0); PLATELET COUNT, AUTOMATED 219 10^3/uL (150-450); RED BLOOD COUNT 3.97 10^6/uL (4.00-5.40); WHITE BLOOD COUNT 4.9 10^3/uL (4.0-10.0)
[2020-11-28 11:11] LABS: ALBUMIN 3.6 GM/DL (3.2-5.2); ALT/SGPT 22 U/L (12-78); BILIRUBIN,TOTAL 0.4 MG/DL (0.2-1.0); BLOOD UREA NITROGEN 15 MG/DL (7-18); CALCIUM LEVEL 8.9 MG/DL (8.8-10.2); CARBON DIOXIDE LEVEL 29 MEQ/L (21-32); CHLORIDE LEVEL 107 MEQ/L (98-107); CHOLESTEROL LEVEL 164 MG/DL (<200); CHOLESTEROL RISK RATIO 2.562 (<5); CREATININE FOR GFR 0.81 MG/DL (0.55-1.30); GLOMERULAR FILTRATION RATE > 60.0 (>39); GLUCOSE, FASTING 95 MG/DL (70-100); HDL CHOLESTEROL 64 MG/DL (>40); LDL CHOLESTEROL 92 MG/DL (<100); NON-HDL-C 100 MG/DL; POTASSIUM SERUM 4.1 MEQ/L (3.5-5.1); SODIUM LEVEL 141 MEQ/L (136-145); TOTAL PROTEIN 6.8 GM/DL (6.4-8.2); TRIGLYCERIDES LEVEL 40 MG/DL (<150)
== END ==
LOC: M WUC 08:20
PROVIDERS: ATTEND Family Medicine
DX: E78.5 Hyperlipidemia, unspecified (principal)

== ENCOUNTER → 2021-03-30 | Outpatient (CLI) | payer MEDICARE, OTHER | LOC: M WHC 13:10 | PROVIDERS: ATTEND Internal Medicine Endocrinology, Diabetes & Metabolism | DX: M85.89 Other specified disorders of bone density and structure, multiple sites (principal) ==

== ENCOUNTER → 2021-05-28 | Outpatient (REF) | payer MEDICARE, OTHER ==
[~2021-05-28] MED LIST changes: -D31000TA2 PO; +VITA100093 PO
[2021-05-28 12:45] LABS: BASO % 0.8 % (0.0-1.0); EOS # 0.1 10^3/uL (0.0-0.5); EOS % 1.9 % (0.0-3.0); HEMATOCRIT 38.6 % (36.0-47.0); HEMOGLOBIN 12.8 g/dl (12.0-15.5); LYMPH # 1.5 10^3/uL (1.5-5.0); LYMPH % 28.8 % (24.0-44.0); MEAN CORPUSCULAR HEMOGLOBIN 28.1 pg (27.0-33.0); MEAN CORPUSCULAR HGB CONC 33.2 g/dl (32.0-36.5); MEAN CORPUSCULAR VOLUME 84.8 fl (80.0-96.0); MONO # 0.5 10^3/uL (0.0-0.8); MONO % 8.6 % (2.0-8.0); NEUTROPHILS # 3.1 10^3/uL (1.5-8.5); NEUTROPHILS % 59.7 % (36.0-66.0); PLATELET COUNT, AUTOMATED 181 10^3/uL (150-450); RED BLOOD COUNT 4.55 10^6/uL (4.00-5.40); WHITE BLOOD COUNT 5.2 10^3/uL (4.0-10.0)
[2021-05-28 12:46] LABS: APPEARANCE, URINE CLEAR (CLEAR); BACTERIA, URINE AUTO 1+ (NEGATIVE); BILIRUBIN, URINE AUTO NEGATIVE (NEGATIVE); BLOOD, URINE BLOOD NEGATIVE (NEGATIVE); COLOR, URINE YELLOW (YELLOW); GLUCOSE, URINE (UA) AUTO NEGATIVE (NEGATIVE); KETONE, URINE AUTO NEGATIVE (NEGATIVE); LEUKOCYTE ESTERASE, URINE AUTO 2+ (NEGATIVE); MUCUS, URINE SMALL (NEGATIVE); NITRITE, URINE AUTO NEGATIVE (NEGATIVE); PROTEIN, URINE AUTO NEGATIVE (NEGATIVE); RBC, URINE AUTO 0 /HPF (0-3); SPECIFIC GRAVITY URINE AUTO 1.017 (1.002-1.035); SQUAMOUS EPITHELIAL CELL UR AU 3 /HPF (0-6); TRANSITIONAL EPITHELIAL AUTO <1 /HPF; UROBILINOGEN, URINE AUTO 0.2 mg/dL (0.0-2.0); WBC, URINE AUTO 3 /HPF (0-3)
[2021-05-28 13:27] LABS: ALBUMIN 4.1 GM/DL (3.2-5.2); ALT/SGPT 24 U/L (12-78); BILIRUBIN,DIRECT 0.1 MG/DL (0.0-0.2); BILIRUBIN,TOTAL 0.5 MG/DL (0.2-1.0); BLOOD UREA NITROGEN 20 MG/DL (7-18); CALCIUM LEVEL 9.4 MG/DL (8.8-10.2); CARBON DIOXIDE LEVEL 29 MEQ/L (21-32); CHLORIDE LEVEL 105 MEQ/L (98-107); CREATININE FOR GFR 0.74 MG/DL (0.55-1.30); GLOMERULAR FILTRATION RATE > 60.0 (>39); GLUCOSE, FASTING 79 MG/DL (70-100); POTASSIUM SERUM 4.5 MEQ/L (3.5-5.1); SODIUM LEVEL 140 MEQ/L (136-145); TOTAL 25(OH) VITAMIN D 54.4 NG/ML (30.0-100.0); TOTAL PROTEIN 7.4 GM/DL (6.4-8.2)
[2021-05-28 13:33] LABS: TOTAL PROTEIN,RANDOM URINE 12.2 MG/DL (0.0-12.0)
[2021-05-28 13:53] LABS: COMPLEMENT C3 103 MG/DL (90-180); COMPLEMENT C4 29 MG/DL (10-40)
[2021-05-30 14:09] LABS: ANTI DS-DNA AB Negative (Negative); COMPLEMENT TOTAL (CH50) > 60 U/mL (>41)
== END ==
LOC: M SFHCRHEU 10:52
PROVIDERS: ATTEND Internal Medicine
DX: M32.9 Systemic lupus erythematosus, unspecified (principal); E67.3 Hypervitaminosis D

== ENCOUNTER → 2021-06-04 | Outpatient (CLI) | payer MEDICARE, OTHER ==
[2021-06-04 12:29] LABS: BASO % 0.6 % (0.0-1.0); EOS # 0.1 10^3/uL (0.0-0.5); HEMATOCRIT 36.5 % (36.0-47.0); HEMOGLOBIN 11.7 g/dl (12.0-15.5); LYMPH # 1.3 10^3/uL (1.5-5.0); LYMPH % 25.1 % (24.0-44.0); MEAN CORPUSCULAR HEMOGLOBIN 27.3 pg (27.0-33.0); MEAN CORPUSCULAR HGB CONC 32.1 g/dl (32.0-36.5); MEAN CORPUSCULAR VOLUME 85.3 fl (80.0-96.0); MONO # 0.5 10^3/uL (0.0-0.8); MONO % 10.2 % (2.0-8.0); NEUTROPHILS # 3.1 10^3/uL (1.5-8.5); NEUTROPHILS % 61.7 % (36.0-66.0); PLATELET COUNT, AUTOMATED 174 10^3/uL (150-450); RED BLOOD COUNT 4.28 10^6/uL (4.00-5.40)
[2021-06-04 13:07] LABS: ALBUMIN 3.7 GM/DL (3.2-5.2); ALT/SGPT 26 U/L (12-78); BILIRUBIN,TOTAL 0.4 MG/DL (0.2-1.0); BLOOD UREA NITROGEN 19 MG/DL (7-18); CALCIUM LEVEL 8.8 MG/DL (8.8-10.2); CARBON DIOXIDE LEVEL 31 MEQ/L (21-32); CHLORIDE LEVEL 106 MEQ/L (98-107); CHOLESTEROL LEVEL 144 MG/DL (<200); CHOLESTEROL RISK RATIO 2.571 (<5); CREATININE FOR GFR 0.75 MG/DL (0.55-1.30); GLOMERULAR FILTRATION RATE > 60.0 (>39); GLUCOSE, FASTING 78 MG/DL (70-100); HDL CHOLESTEROL 56 MG/DL (>40); LDL CHOLESTEROL 75 MG/DL (<100); NON-HDL-C 88 MG/DL; POTASSIUM SERUM 3.9 MEQ/L (3.5-5.1); SODIUM LEVEL 142 MEQ/L (136-145); TOTAL PROTEIN 6.7 GM/DL (6.4-8.2); TRIGLYCERIDES LEVEL 64 MG/DL (<150)
== END ==
LOC: M WUC 10:00
PROVIDERS: ATTEND Family Medicine
DX: M32.9 Systemic lupus erythematosus, unspecified (principal); E78.5 Hyperlipidemia, unspecified

== ENCOUNTER → 2021-08-16 | Outpatient (CLI) | payer MEDICARE, OTHER | LOC: M PLALAB 16:01 | PROVIDERS: ATTEND Family Medicine | DX: E06.3 Autoimmune thyroiditis (principal) ==

== ENCOUNTER → 2021-10-05 | Outpatient (CLI) | payer MEDICARE, OTHER | LOC: M WHC 12:14 | PROVIDERS: ATTEND Obstetrics & Gynecology | DX: Z12.31 Encounter for screening mammogram for malignant neoplasm of breast (principal) ==

== ENCOUNTER → 2021-11-15 | Outpatient (CLI) | payer MEDICARE, OTHER | LOC: M SOG 14:59 | PROVIDERS: ATTEND Orthopaedic Surgery Adult Reconstructive Orthopaedic Surgery | DX: M25.561 Pain in right knee (principal); M25.761 Osteophyte, right knee ==

== ENCOUNTER → 2022-01-16 | Outpatient (REF) | payer MEDICARE, OTHER | LOC: M LAB REF 16:48 | PROVIDERS: ATTEND Family Medicine | DX: H10.021 Other mucopurulent conjunctivitis, right eye (principal); J34.89 Other specified disorders of nose and nasal sinuses; N76.0 Acute vaginitis; R30.0 Dysuria ==

== ENCOUNTER → 2022-03-01 | Outpatient (REF) | payer MEDICARE, OTHER ==
[2022-03-01 13:45] LABS: BASO # 0.1 10^3/uL (0.0-0.2); EOS # 0.1 10^3/uL (0.0-0.5); EOS % 1.9 % (0.0-3.0); HEMATOCRIT 40.4 % (36.0-47.0); LYMPH # 1.5 10^3/uL (1.5-5.0); MEAN CORPUSCULAR HEMOGLOBIN 28.8 pg (27.0-33.0); MEAN CORPUSCULAR HGB CONC 32.2 g/dl (32.0-36.5); MEAN CORPUSCULAR VOLUME 89.4 fl (80.0-96.0); MONO # 0.5 10^3/uL (0.0-0.8); MONO % 10.3 % (2.0-8.0); NEUTROPHILS # 3.1 10^3/uL (1.5-8.5); NEUTROPHILS % 58.4 % (36.0-66.0); PLATELET COUNT, AUTOMATED 196 10^3/uL (150-450); RED BLOOD COUNT 4.52 10^6/uL (4.00-5.40); WHITE BLOOD COUNT 5.2 10^3/uL (4.0-10.0)
[2022-03-01 14:16] LABS: TOTAL PROTEIN,RANDOM URINE 17.7 MG/DL (0.0-14.0)
[2022-03-01 14:17] LABS: BILIRUBIN,DIRECT 0.1 MG/DL (<0.4)
[2022-03-01 14:18] LABS: ALBUMIN 3.9 G/DL (3.2-5.2); ALKALINE PHOSPHATASE 76 U/L (46-116); ALT/SGPT 20 U/L (7.0-40); AST/SGOT 21 U/L (<34); BILIRUBIN,TOTAL 0.4 MG/DL (0.3-1.2); BLOOD UREA NITROGEN 19 MG/DL (9-23); C REACTIVE PROTEIN QUANTITATIV < 0.40 MG/DL (<1.0); CALCIUM LEVEL 8.9 MG/DL (8.3-10.6); CARBON DIOXIDE LEVEL 31 MMOL/L (20-31); CHLORIDE LEVEL 105 MMOL/L (98-107); CREATININE FOR GFR 0.72 MG/DL (0.55-1.30); GLOMERULAR FILTRATION RATE > 60.0 (>39); GLUCOSE, FASTING 67 MG/DL (74-106); POTASSIUM SERUM 4.2 MMOL/L (3.5-5.1); SODIUM LEVEL 141 MMOL/L (136-145); TOTAL PROTEIN 6.8 G/DL (5.7-8.2)
[2022-03-01 14:19] LABS: COMPLEMENT C3 95.1 MG/DL (90.0-170.0); COMPLEMENT C4 32.2 MG/DL (12-36)
[2022-03-01 14:19] LABS: CREATININE,RANDOM URINE 109.8 MG/DL
[2022-03-01 14:20] LABS: TOTAL 25(OH) VITAMIN D 65.9 NG/ML (20.0-100.0)
[2022-03-01 14:22] LABS: ERYTHROCYTE SEDIMENTATION RATE 6 mm/hr (0-30)
[2022-03-01 15:08] LABS: APPEARANCE, URINE MANUAL CLEAR (CLEAR)
[2022-03-01 15:09] LABS: COLOR, URINE MANUAL YELLOW (YELLOW); SPECIFIC GRAVITY,URINE MANUAL 1.015 (1.002-1.035)
[2022-03-01 15:10] LABS: BILIRUBIN, URINE MANUAL NEGATIVE (NEGATIVE); BLOOD URINE MANUAL POSITIVE (NEGATIVE); GLUCOSE, URINE (UA) MANUAL NEGATIVE (NEGATIVE); KETONE, URINE MANUAL NEGATIVE (NEGATIVE); LEUKOCYTE ESTERASE, URINE MAN POSITIVE (NEGATIVE); NITRITE, URINE MANUAL NEGATIVE (NEGATIVE); PROTEIN, URINE MANUAL NEGATIVE (NEGATIVE); UROBILINOGEN, URINE MANUAL NORMAL (NORMAL)
[2022-03-01 16:00] LABS: BACTERIA, URINE SMALL AMOUNT; HYALINE CAST, URINE NONE SEEN /lpf (0-1); MUCUS, URINE LARGE AMOUNT (NEGATIVE); SQUAMOUS EPITHELIAL CELL URINE SMALL AMOUNT /hpf (SMALL AMT)
[2022-03-05 15:07] LABS: ANTI DS-DNA AB Positive (Negative); COMPLEMENT TOTAL (CH50) > 60 U/mL (>41)
== END ==
LOC: M SFHCRHEU 10:50
PROVIDERS: ATTEND Internal Medicine
DX: M32.9 Systemic lupus erythematosus, unspecified (principal); Z79.899 Other long term (current) drug therapy; E67.3 Hypervitaminosis D

== ENCOUNTER → 2022-04-08 | Outpatient (CLI) | payer MEDICARE, OTHER | LOC: M WHC 12:46 | PROVIDERS: ATTEND Internal Medicine Endocrinology, Diabetes & Metabolism | DX: M85.89 Other specified disorders of bone density and structure, multiple sites (principal) ==

== ENCOUNTER → 2022-06-04 | Outpatient (CLI) | payer MEDICARE, OTHER ==
[2022-06-04 14:39] LABS: BASO # 0.1 10^3/uL (0.0-0.2); BASO % 0.9 % (0.0-1.0); EOS # 0.2 10^3/uL (0.0-0.5); EOS % 3.2 % (0.0-3.0); HEMATOCRIT 38.1 % (36.0-47.0); HEMOGLOBIN 12.4 g/dl (12.0-15.5); LYMPH # 1.5 10^3/uL (1.5-5.0); LYMPH % 26.6 % (24.0-44.0); MEAN CORPUSCULAR HEMOGLOBIN 28.3 pg (27.0-33.0); MEAN CORPUSCULAR HGB CONC 32.5 g/dl (32.0-36.5); MONO # 0.5 10^3/uL (0.0-0.8); MONO % 8.3 % (2.0-8.0); NEUTROPHILS # 3.4 10^3/uL (1.5-8.5); NEUTROPHILS % 60.8 % (36.0-66.0); PLATELET COUNT, AUTOMATED 187 10^3/uL (150-450); RED BLOOD COUNT 4.38 10^6/uL (4.00-5.40); WHITE BLOOD COUNT 5.6 10^3/uL (4.0-10.0)
[2022-06-04 15:19] LABS: ALBUMIN 3.9 G/DL (3.2-5.2); ALKALINE PHOSPHATASE 64 U/L (46-116); ALT/SGPT 18 U/L (7.0-40); AST/SGOT 22 U/L (<34); BILIRUBIN,TOTAL 0.3 MG/DL (0.3-1.2); BLOOD UREA NITROGEN 19 MG/DL (9-23); CARBON DIOXIDE LEVEL 28 MMOL/L (20-31); CHLORIDE LEVEL 107 MMOL/L (98-107); CHOLESTEROL LEVEL 167 MG/DL (<200); CHOLESTEROL RISK RATIO 2.68 (<5); CREATININE FOR GFR 0.79 MG/DL (0.55-1.30); GLOMERULAR FILTRATION RATE > 60.0 (>39); GLUCOSE, FASTING 82 MG/DL (74-106); HDL CHOLESTEROL 62.1 MG/DL (>40); LDL CHOLESTEROL 90.9 MG/DL (<100); NON-HDL-C 104.9 MG/DL; POTASSIUM SERUM 4.1 MMOL/L (3.5-5.1); SODIUM LEVEL 142 MMOL/L (136-145); TOTAL PROTEIN 6.9 G/DL (5.7-8.2); TRIGLYCERIDES LEVEL 70 MG/DL (<150)
== END ==
LOC: M WUC 10:12
PROVIDERS: ATTEND Family Medicine
DX: E78.5 Hyperlipidemia, unspecified (principal)

== ENCOUNTER → 2022-06-10 | Outpatient (CLI) | payer MEDICARE, OTHER | LOC: M WUC 10:48 | PROVIDERS: ATTEND Nurse Practitioner Adult Health | DX: M51.36 Other intervertebral disc degeneration, lumbar region (principal) ==

== ENCOUNTER → 2022-10-11 | Outpatient (CLI) | payer MEDICARE, OTHER ==
[~2022-10-11] MED LIST changes: -HYDR200T3 PO; +HYDR200T46 PO
== END ==
LOC: M WHC 10:07
PROVIDERS: ATTEND Family Medicine
DX: Z12.31 Encounter for screening mammogram for malignant neoplasm of breast (principal)

== ENCOUNTER → 2022-12-10 | Outpatient (REF) | payer MEDICARE, OTHER ==
[2022-12-10 11:08] LABS: BASO # 0.1 10^3/uL (0.0-0.2); EOS # 0.2 10^3/uL (0.0-0.5); EOS % 3.6 % (0.0-3.0); HEMATOCRIT 37.2 % (36.0-47.0); LYMPH # 1.5 10^3/uL (1.5-5.0); LYMPH % 28.8 % (24.0-44.0); MEAN CORPUSCULAR HEMOGLOBIN 27.9 pg (27.0-33.0); MEAN CORPUSCULAR HGB CONC 32.3 g/dl (32.0-36.5); MEAN CORPUSCULAR VOLUME 86.5 fl (80.0-96.0); MONO # 0.5 10^3/uL (0.0-0.8); MONO % 9.2 % (2.0-8.0); NEUTROPHILS % 57.2 % (36.0-66.0); PLATELET COUNT, AUTOMATED 184 10^3/uL (150-450); WHITE BLOOD COUNT 5.2 10^3/uL (4.0-10.0)
[2022-12-10 11:32] LABS: ALBUMIN 3.6 G/DL (3.2-5.2); ALKALINE PHOSPHATASE 58 U/L (46-116); ALT/SGPT 21 U/L (7.0-40); AST/SGOT 21 U/L (<34); BILIRUBIN,TOTAL 0.4 MG/DL (0.3-1.2); BLOOD UREA NITROGEN 18 MG/DL (9-23); CALCIUM LEVEL 8.7 MG/DL (8.3-10.6); CARBON DIOXIDE LEVEL 30 MMOL/L (20-31); CHLORIDE LEVEL 107 MMOL/L (98-107); CHOLESTEROL LEVEL 153 MG/DL (<200); CHOLESTEROL RISK RATIO 2.75 (<5); CREATININE FOR GFR 0.79 MG/DL (0.55-1.30); GLOMERULAR FILTRATION RATE > 60.0 (>39); GLUCOSE, FASTING 83 MG/DL (74-106); HDL CHOLESTEROL 55.6 MG/DL (>40); LDL CHOLESTEROL 75.6 MG/DL (<100); NON-HDL-C 97.4 MG/DL; POTASSIUM SERUM 4.2 MMOL/L (3.5-5.1); SODIUM LEVEL 144 MMOL/L (136-145); THYROID STIMULATING HORMONE 3.155 uIU/ML (0.55-4.78); TOTAL PROTEIN 6.4 G/DL (5.7-8.2); TRIGLYCERIDES LEVEL 109 MG/DL (<150)
[2022-12-10 11:33] LABS: FREE T4 1.03 NG/DL (0.89-1.76)
== END ==
LOC: M WUC 10:36
PROVIDERS: ATTEND Nurse Practitioner Adult Health
DX: E03.9 Hypothyroidism, unspecified (principal); M32.9 Systemic lupus erythematosus, unspecified; E78.5 Hyperlipidemia, unspecified

== ENCOUNTER → 2023-01-02 | Outpatient (CLI) | payer MEDICARE, OTHER | LOC: M RAD 07:34 | PROVIDERS: ATTEND Family Medicine | DX: M50.122 Cervical disc disorder at C5-C6 level with radiculopathy (principal); L29.9 Pruritus, unspecified; M48.02 Spinal stenosis, cervical region; M48.061 Spinal stenosis, lumbar region without neurogenic claudication; M48.07 Spinal stenosis, lumbosacral region; M50.121 Cervical disc disorder at C4-C5 level with radiculopathy ==

== ENCOUNTER 2023-03-26 10:51 | Day surgery (SDC) | payer MEDICARE, OTHER ==
[~2023-03-26] VITALS: Ht 170.2 cm; Wt 65.5 kg
[~2023-03-26 10:51] MED LIST changes: +CALCCAP4 PO; +OCUV1CAP4 PO; +RALO1TAB PO; +VITA100T14 PO
[2023-03-26] MEDS: NS 1,000 ML IV ONE (11:06)
[2023-03-26 11:48] VITALS: TEMP 98.7
[2023-03-26 12:04] VITALS: BP 102/62; O2SAT 98
== END 2023-03-26 12:30 | disposition home or self-care (01) ==
LOC: M OPP 10:51
PROVIDERS: ATTEND Internal Medicine Gastroenterology
DX: Z12.11 Encounter for screening for malignant neoplasm of colon (principal); Z80.0 Family history of malignant neoplasm of digestive organs; K64.0 First degree hemorrhoids; K57.30 Diverticulosis of large intestine without perforation or abscess without bleeding; Z87.891 Personal history of nicotine dependence; Z79.02 Long term (current) use of antithrombotics/antiplatelets; Z79.620 Long term (current) use of immunosuppressive biologic; Z79.84 Long term (current) use of oral hypoglycemic drugs; Z79.890 Hormone replacement therapy; Z79.899 Other long term (current) drug therapy; Z88.0 Allergy status to penicillin

== ENCOUNTER → 2023-04-01 | Outpatient (REF) | payer MEDICARE, OTHER ==
[2023-04-04 00:06] LABS: ANTI DS-DNA AB Negative (Negative)
== END ==
LOC: M SFHCRHEU 11:49
PROVIDERS: ATTEND Internal Medicine
DX: M32.9 Systemic lupus erythematosus, unspecified (principal); E67.3 Hypervitaminosis D; Z79.899 Other long term (current) drug therapy

== ENCOUNTER → 2023-05-21 | Outpatient (REF) | payer MEDICARE, OTHER ==
[2023-05-21 17:26] LABS: THYROID STIMULATING HORMONE 1.468 uIU/ML (0.55-4.78); TOTAL 25(OH) VITAMIN D 64.8 NG/ML (20.0-100.0)
== END ==
LOC: M LABWUC 16:40
PROVIDERS: ATTEND Internal Medicine Endocrinology, Diabetes & Metabolism
DX: M85.89 Other specified disorders of bone density and structure, multiple sites (principal); Z79.899 Other long term (current) drug therapy

== ENCOUNTER → 2023-06-08 | Outpatient (REF) | payer MEDICARE, OTHER ==
[2023-06-08 19:10] LABS: AMORPHOUS SEDIMENT SMALL (NEGATIVE); APPEARANCE, URINE CLEAR (CLEAR); BACTERIA, URINE AUTO NEGATIVE (NEGATIVE); BILIRUBIN, URINE AUTO NEGATIVE (NEGATIVE); BLOOD, URINE BLOOD 2+ (NEGATIVE); COLOR, URINE YELLOW (YELLOW); GLUCOSE, URINE (UA) AUTO NEGATIVE (NEGATIVE); KETONE, URINE AUTO NEGATIVE (NEGATIVE); LEUKOCYTE ESTERASE, URINE AUTO 2+ (NEGATIVE); MUCUS, URINE SMALL (NEGATIVE); NITRITE, URINE AUTO NEGATIVE (NEGATIVE); PROTEIN, URINE AUTO 1+ mg/dL (NEGATIVE); RBC, URINE AUTO 2 /HPF (0-3); SPECIFIC GRAVITY URINE AUTO 1.005 (1.002-1.035); SQUAMOUS EPITHELIAL CELL UR AU 0 /HPF (0-6); UROBILINOGEN, URINE AUTO 0.2 mg/dL (0.0-2.0); WBC, URINE AUTO 23 /HPF (0-3)
== END ==
LOC: M LAB REF 18:48
PROVIDERS: ATTEND Physician Assistant Medical
DX: N39.0 Urinary tract infection, site not specified (principal)

== ENCOUNTER → 2023-06-11 | Outpatient (CLI) | payer MEDICARE, OTHER ==
[2023-06-11 13:21] LABS: BASO # 0.1 10^3/uL (0.0-0.2); BASO % 0.9 % (0.0-1.0); EOS # 0.2 10^3/uL (0.0-0.5); EOS % 2.8 % (0.0-3.0); HEMATOCRIT 37.9 % (36.0-47.0); HEMOGLOBIN 12.2 g/dl (12.0-15.5); LYMPH # 1.4 10^3/uL (1.5-5.0); MEAN CORPUSCULAR HEMOGLOBIN 28.3 pg (27.0-33.0); MEAN CORPUSCULAR HGB CONC 32.2 g/dl (32.0-36.5); MEAN CORPUSCULAR VOLUME 87.9 fl (80.0-96.0); MONO # 0.5 10^3/uL (0.0-0.8); MONO % 9.1 % (2.0-8.0); NEUTROPHILS # 3.2 10^3/uL (1.5-8.5); PLATELET COUNT, AUTOMATED 190 10^3/uL (150-450); RED BLOOD COUNT 4.31 10^6/uL (4.00-5.40); WHITE BLOOD COUNT 5.3 10^3/uL (4.0-10.0)
[2023-06-11 13:24] LABS: ALBUMIN 3.7 G/DL (3.2-5.2); BILIRUBIN,TOTAL 0.4 MG/DL (0.3-1.2); CHOLESTEROL RISK RATIO 2.65 (<5); CREATININE FOR GFR 1.08 MG/DL (0.55-1.30); GLOMERULAR FILTRATION RATE 53.1 (>39); HDL CHOLESTEROL 65.1 MG/DL (>40); LDL CHOLESTEROL 95.9 MG/DL (<100); NON-HDL-C 107.9 MG/DL; POTASSIUM SERUM 4.1 MMOL/L (3.5-5.1); TOTAL PROTEIN 6.4 G/DL (5.7-8.2)
== END ==
LOC: M PLALAB 09:30
PROVIDERS: ATTEND Family Medicine
DX: E78.5 Hyperlipidemia, unspecified (principal)

== ENCOUNTER → 2023-08-25 | Outpatient (CLI) | payer MEDICARE, OTHER ==
[~2023-08-25] MED LIST changes: -CRAN400C PO; +CRANBERRY400 MG PO
[2023-08-25 11:39] LABS: BASO % 0.6 % (0.0-1.0); EOS # 0.1 10^3/uL (0.0-0.5); HEMATOCRIT 33.9 % (36.0-47.0); HEMOGLOBIN 11.1 g/dl (12.0-15.5); LYMPH # 1.2 10^3/uL (1.5-5.0); MEAN CORPUSCULAR HEMOGLOBIN 28.1 pg (27.0-33.0); MEAN CORPUSCULAR HGB CONC 32.7 g/dl (32.0-36.5); MEAN CORPUSCULAR VOLUME 85.8 fl (80.0-96.0); MONO # 0.4 10^3/uL (0.0-0.8); MONO % 8.8 % (2.0-8.0); NEUTROPHILS # 3.3 10^3/uL (1.5-8.5); NEUTROPHILS % 65.4 % (36.0-66.0); PLATELET COUNT, AUTOMATED 176 10^3/uL (150-450); RED BLOOD COUNT 3.95 10^6/uL (4.00-5.40)
[2023-08-25 12:09] LABS: ALBUMIN 3.3 G/DL (3.2-5.2); ALKALINE PHOSPHATASE 53 U/L (46-116); ALT/SGPT 22 U/L (7.0-40); AST/SGOT 18 U/L (<34); BILIRUBIN,TOTAL 0.4 MG/DL (0.3-1.2); BLOOD UREA NITROGEN 18 MG/DL (9-23); CALCIUM LEVEL 8.3 MG/DL (8.3-10.6); CARBON DIOXIDE LEVEL 27 MMOL/L (20-31); CHLORIDE LEVEL 110 MMOL/L (98-107); CREATININE FOR GFR 0.81 MG/DL (0.55-1.30); GLOMERULAR FILTRATION RATE > 60.0 (>39); GLUCOSE, FASTING 77 MG/DL (74-106); POTASSIUM SERUM 3.4 MMOL/L (3.5-5.1); SODIUM LEVEL 143 MMOL/L (136-145)
== END ==
LOC: M WUC 08:55
PROVIDERS: ATTEND Podiatrist
DX: M20.12 Hallux valgus (acquired), left foot (principal); M79.671 Pain in right foot

== ENCOUNTER 2023-09-19 06:05 | Day surgery (SDC) | payer MEDICARE, OTHER ==
[~2023-09-19] VITALS: Ht 170.2 cm; Wt 65.8 kg
[~2023-09-19 06:05] MED LIST changes: +ALPH600C PO; +CRAN500C11 PO; +ESTR10TA VG; +PRAV20TA2 PO
[2023-09-19] MEDS ORDERED: LR 1,000 ML IV SCH (06:25)
[2023-09-19] MEDS ORDERED: fentaNYL 100 MCG/2 ML INJECTION As Ordered ONE (06:59)
[2023-09-19] MEDS ORDERED: propofoL 200 MG/20 ML VIAL As Ordered ONE (06:59)
[2023-09-19] MEDS ORDERED: MIDAZOLAM INJ 2MG/2ML VIAL As Ordered ONE (06:59)
[2023-09-19] MEDS ORDERED: LIDOCAINE 2% 100MG/5ML SDV (FOR ANES.) As Ordered ONE (07:00)
[2023-09-19] MEDS ORDERED: ONDANSETRON 4MG 2ML VIAL As Ordered ONE (07:00)
[2023-09-19] MEDS: VANCOMYCIN HCL 1,000 MG, VIAL MATE ADAPTER 1 EACH in D5W 250 ML IV ONE (07:10)
[2023-09-19] MEDS: NEOSPORIN GU IRRIG 20ML VIAL As Ordered ONE (07:15)
[2023-09-19] MEDS: LIDOCAINE 2% MDV 20ML VIAL As Ordered ONE (07:47)
[2023-09-19] MEDS: GENTAMICIN SULF 80MG/2ML VIAL As Ordered ONE (08:00)
[2023-09-19] MEDS ORDERED: KETOROLAC 60MG 2ML VIAL As Ordered ONE (08:05)
[2023-09-19] MEDS ORDERED: ACETAMINOPHEN 1000MG 100ML IV BAG As Ordered ONE (08:05)
[2023-09-19] MEDS ORDERED: ePHEDrine SULFATE 25 MG/5 ML(5MG/ML) SYRINGE As Ordered ONE (08:08)
[2023-09-19] MEDS: ROPIvacaine 0.5% 30ML VIAL As Ordered ONE (08:16)
[2023-09-19 09:35] VITALS: BP 118/70; TEMP 96.9; O2SAT 99
== END 2023-09-19 10:12 | disposition home or self-care (01) ==
LOC: M SDC 06:05
PROVIDERS: ATTEND Podiatrist
DX: M20.12 Hallux valgus (acquired), left foot (principal); E03.9 Hypothyroidism, unspecified; E78.5 Hyperlipidemia, unspecified; M32.9 Systemic lupus erythematosus, unspecified; Z87.891 Personal history of nicotine dependence; Z79.899 Other long term (current) drug therapy; J30.2 Other seasonal allergic rhinitis; Z88.0 Allergy status to penicillin
CPT/HCPCS: 28296; 73630; 76000; 88300; C1713; J0131; J0665; J1100; J1580; J1885; J2250; J2405; J3010; J3370

== ENCOUNTER → 2023-10-13 | Outpatient (CLI) | payer MEDICARE, OTHER | LOC: M WHC 09:15 | PROVIDERS: ATTEND Family Medicine | DX: Z12.31 Encounter for screening mammogram for malignant neoplasm of breast (principal) ==

== ENCOUNTER → 2023-12-16 | Outpatient (CLI) | payer MEDICARE, OTHER ==
[~2023-12-16] MED LIST changes: -CRAN500C11 PO; +CVS500CA5 PO
== END ==
LOC: M WUC 10:30
PROVIDERS: ATTEND Family Medicine
DX: J20.9 Acute bronchitis, unspecified (principal)

== ENCOUNTER → 2024-02-17 | Outpatient (REF) | payer MEDICARE, OTHER | LOC: M LAB REF 16:47 → EEVIPCON 16:47 | PROVIDERS: ATTEND Nurse Practitioner Adult Health | DX: N39.0 Urinary tract infection, site not specified (principal) ==

== ENCOUNTER → 2024-03-12 | Outpatient (REF) | payer MEDICARE, OTHER ==
[2024-03-12 17:14] LABS: APPEARANCE, URINE CLEAR (CLEAR); BACTERIA, URINE AUTO NEGATIVE (NEGATIVE); BILIRUBIN, URINE AUTO NEGATIVE (NEGATIVE); BLOOD, URINE BLOOD NEGATIVE (NEGATIVE); COLOR, URINE YELLOW (YELLOW); GLUCOSE, URINE (UA) AUTO NEGATIVE (NEGATIVE); KETONE, URINE AUTO NEGATIVE (NEGATIVE); LEUKOCYTE ESTERASE, URINE AUTO 1+ (NEGATIVE); MUCUS, URINE SMALL (NEGATIVE); NITRITE, URINE AUTO NEGATIVE (NEGATIVE); PROTEIN, URINE AUTO 1+ mg/dL (NEGATIVE); RBC, URINE AUTO 6 /HPF (0-3); SPECIFIC GRAVITY URINE AUTO 1.016 (1.002-1.035); SQUAMOUS EPITHELIAL CELL UR AU 1 /HPF (0-6); TRANSITIONAL EPITHELIAL AUTO <1 /HPF; UROBILINOGEN, URINE AUTO 0.2 mg/dL (0.0-2.0); WBC, URINE AUTO 2 /HPF (0-3)
[2024-03-12 17:42] LABS: TOTAL PROTEIN,RANDOM URINE 25.4 MG/DL (0.0-14.0)
[2024-03-12 17:46] LABS: CREATININE,RANDOM URINE 70.6 MG/DL
[2024-03-12 18:33] LABS: BASO # 0.1 10^3/uL (0.0-0.2); BASO % 1.1 % (0.0-1.0); EOS # 0.1 10^3/uL (0.0-0.5); EOS % 0.9 % (0.0-3.0); HEMATOCRIT 34.6 % (36.0-47.0); HEMOGLOBIN 11.1 g/dl (12.0-15.5); LYMPH # 1.7 10^3/uL (1.5-5.0); LYMPH % 30.5 % (24.0-44.0); MEAN CORPUSCULAR HEMOGLOBIN 27.5 pg (27.0-33.0); MEAN CORPUSCULAR HGB CONC 32.1 g/dl (32.0-36.5); MEAN CORPUSCULAR VOLUME 85.6 fl (80.0-96.0); MONO # 0.6 10^3/uL (0.0-0.8); MONO % 9.7 % (2.0-8.0); NEUTROPHILS # 3.3 10^3/uL (1.5-8.5); NEUTROPHILS % 57.6 % (36.0-66.0); PLATELET COUNT, AUTOMATED 220 10^3/uL (150-450); RED BLOOD COUNT 4.04 10^6/uL (4.00-5.40); WHITE BLOOD COUNT 5.7 10^3/uL (4.0-10.0)
[2024-03-12 18:41] LABS: ERYTHROCYTE SEDIMENTATION RATE 9 mm/hr (0-30)
[2024-03-12 19:05] LABS: ALBUMIN 3.7 G/DL (3.2-5.2); ALKALINE PHOSPHATASE 56 U/L (35-104); ALT/SGPT 27 U/L (7.0-40); AST/SGOT 24 U/L (<34); BILIRUBIN,DIRECT 0.1 MG/DL (<0.4); BILIRUBIN,TOTAL 0.4 MG/DL (0.3-1.2); BLOOD UREA NITROGEN 20 MG/DL (9-23); C REACTIVE PROTEIN QUANTITATIV < 0.50 MG/DL (<1.0); CALCIUM LEVEL 9.2 MG/DL (8.3-10.6); CARBON DIOXIDE LEVEL 28 MMOL/L (20-31); CHLORIDE LEVEL 109 MMOL/L (98-107); CREATININE FOR GFR 0.72 MG/DL (0.55-1.30); GLOMERULAR FILTRATION RATE > 60.0 (>39); GLUCOSE, FASTING 76 MG/DL (74-106); POTASSIUM SERUM 4.6 MMOL/L (3.5-5.1); SODIUM LEVEL 145 MMOL/L (136-145); TOTAL PROTEIN 6.9 G/DL (5.7-8.2)
[2024-03-12 19:06] LABS: COMPLEMENT C4 34.1 MG/DL (12-36)
[2024-03-12 19:07] LABS: TOTAL 25(OH) VITAMIN D 57.1 NG/ML (20.0-100.0)
[2024-03-16 17:38] LABS: COMPLEMENT TOTAL (CH50) 60 U/mL (31-60)
[2024-03-18 02:38] LABS: ANTI DS-DNA AB NEGATIVE (NEGATIVE)
== END ==
LOC: M SFHCRHEU 12:40
PROVIDERS: ATTEND Internal Medicine
DX: M32.9 Systemic lupus erythematosus, unspecified (principal); Z79.899 Other long term (current) drug therapy

== ENCOUNTER → 2024-04-12 | Outpatient (CLI) | payer MEDICARE, OTHER ==
[2024-04-12 13:59] LABS: BLOOD UREA NITROGEN 16 MG/DL (9-23); CALCIUM LEVEL 8.8 MG/DL (8.3-10.6); CARBON DIOXIDE LEVEL 30 MMOL/L (20-31); CHLORIDE LEVEL 105 MMOL/L (98-107); CREATININE FOR GFR 0.83 MG/DL (0.55-1.30); GLOMERULAR FILTRATION RATE > 60.0 (>39); GLUCOSE, FASTING 91 MG/DL (74-106); POTASSIUM SERUM 4.2 MMOL/L (3.5-5.1); SODIUM LEVEL 139 MMOL/L (136-145)
[2024-04-12 14:00] LABS: THYROID STIMULATING HORMONE 2.719 uIU/ML (0.55-4.78); TOTAL 25(OH) VITAMIN D 55.9 NG/ML (20.0-100.0)
[2024-04-12 14:02] LABS: FREE T4 1.41 NG/DL (0.89-1.76)
== END ==
LOC: M PLALAB 10:17
PROVIDERS: ATTEND Nurse Practitioner Family
DX: E06.3 Autoimmune thyroiditis (principal); M85.89 Other specified disorders of bone density and structure, multiple sites; E55.9 Vitamin D deficiency, unspecified

== ENCOUNTER → 2024-04-12 | Outpatient (REF) | payer MEDICARE, OTHER ==
[2024-04-12 13:55] LABS: APPEARANCE, URINE CLEAR (CLEAR); BACTERIA, URINE AUTO NEGATIVE (NEGATIVE); BILIRUBIN, URINE AUTO NEGATIVE (NEGATIVE); BLOOD, URINE BLOOD NEGATIVE (NEGATIVE); COLOR, URINE YELLOW (YELLOW); GLUCOSE, URINE (UA) AUTO NEGATIVE (NEGATIVE); KETONE, URINE AUTO NEGATIVE (NEGATIVE); LEUKOCYTE ESTERASE, URINE AUTO NEGATIVE (NEGATIVE); NITRITE, URINE AUTO NEGATIVE (NEGATIVE); PROTEIN, URINE AUTO NEGATIVE (NEGATIVE); RBC, URINE AUTO 3 /HPF (0-3); SPECIFIC GRAVITY URINE AUTO 1.015 (1.002-1.035); SQUAMOUS EPITHELIAL CELL UR AU 1 /HPF (0-6); UROBILINOGEN, URINE AUTO 0.2 mg/dL (0.0-2.0); WBC, URINE AUTO 1 /HPF (0-3)
== END ==
LOC: M SFHCRHEU 12:27
PROVIDERS: ATTEND Internal Medicine
DX: R31.29 Other microscopic hematuria (principal)

== ENCOUNTER → 2024-04-12 | Outpatient (CLI) | payer MEDICARE, OTHER | LOC: M WHC 09:21 | PROVIDERS: ATTEND Nurse Practitioner Family | DX: M85.89 Other specified disorders of bone density and structure, multiple sites (principal); E06.3 Autoimmune thyroiditis; E55.9 Vitamin D deficiency, unspecified; R31.29 Other microscopic hematuria ==

== ENCOUNTER → 2024-06-16 | Outpatient (CLI) | payer MEDICARE, OTHER ==
[2024-06-16 14:30] LABS: BASO % 0.7 % (0.0-1.0); EOS # 0.1 10^3/uL (0.0-0.5); EOS % 1.2 % (0.0-3.0); HEMATOCRIT 36.1 % (36.0-47.0); HEMOGLOBIN 11.7 g/dl (12.0-15.5); LYMPH # 1.6 10^3/uL (1.5-5.0); LYMPH % 27.8 % (24.0-44.0); MEAN CORPUSCULAR HEMOGLOBIN 27.2 pg (27.0-33.0); MEAN CORPUSCULAR HGB CONC 32.4 g/dl (32.0-36.5); MONO # 0.5 10^3/uL (0.0-0.8); MONO % 8.5 % (2.0-8.0); NEUTROPHILS # 3.6 10^3/uL (1.5-8.5); NEUTROPHILS % 61.8 % (36.0-66.0); PLATELET COUNT, AUTOMATED 180 10^3/uL (150-450); WHITE BLOOD COUNT 5.8 10^3/uL (4.0-10.0)
[2024-06-16 15:01] LABS: FREE T4 1.19 NG/DL (0.89-1.76)
[2024-06-16 15:03] LABS: THYROID STIMULATING HORMONE 2.398 uIU/ML (0.55-4.78)
[2024-06-16 15:06] LABS: ALBUMIN 3.6 G/DL (3.2-5.2); BILIRUBIN,TOTAL 0.5 MG/DL (0.3-1.2); CHOLESTEROL RISK RATIO 2.59 (<5); CREATININE FOR GFR 0.77 MG/DL (0.55-1.30); GLOMERULAR FILTRATION RATE 81.4 (>39); HDL CHOLESTEROL 64.7 MG/DL (>40); LDL CHOLESTEROL 89.5 MG/DL (<100); NON-HDL-C 103.3 MG/DL; POTASSIUM SERUM 4.4 MMOL/L (3.5-5.1); TOTAL PROTEIN 6.6 G/DL (5.7-8.2)
== END ==
LOC: M WUC 10:32
PROVIDERS: ATTEND Family Medicine
DX: E78.5 Hyperlipidemia, unspecified (principal)

== ENCOUNTER → 2024-10-20 | Outpatient (CLI) | payer MEDICARE, OTHER ==
[~2024-10-20] MED LIST changes: -ALPH600C PO; +ALPH600C2 PO; -PRAV20TA2 PO; +PRAV20TA78 PO; -PRAV40TA2 PO; +PRAV40TA85 PO; -RA T500C2 PO; +TURM500C10 PO; -VITA100T14 PO; +VITA100T69 PO
== END ==
LOC: M WHC 09:04
PROVIDERS: ATTEND Family Medicine
DX: Z12.31 Encounter for screening mammogram for malignant neoplasm of breast (principal); R92.323 Mammographic fibroglandular density, bilateral breasts

== ENCOUNTER → 2024-12-15 | Outpatient (CLI) | payer MEDICARE, OTHER ==
[2024-12-15 13:18] LABS: BASO # 0.1 10^3/uL (0.0-0.2); BASO % 1.0 % (0.0-1.0); EOS # 0.1 10^3/uL (0.0-0.5); EOS % 1.4 % (0.0-3.0); LYMPH # 1.7 10^3/uL (1.5-5.0); LYMPH % 28.1 % (24.0-44.0); MONO # 0.5 10^3/uL (0.0-0.8); MONO % 9.0 % (2.0-8.0); NEUTROPHILS # 3.5 10^3/uL (1.5-8.5); NEUTROPHILS % 60.3 % (36.0-66.0); PLATELET COUNT, AUTOMATED 226 10^3/uL (150-450)
[2024-12-15 13:23] LABS: FREE T4 1.22 NG/DL (0.89-1.76)
[2024-12-15 13:25] LABS: ALT/SGPT 21 U/L (7.0-40); AST/SGOT 30 U/L (<34); CALCIUM LEVEL 9.0 MG/DL (8.3-10.6); CARBON DIOXIDE LEVEL 29 MMOL/L (20-31); CHLORIDE LEVEL 106 MMOL/L (98-107); CHOLESTEROL LEVEL 182 MG/DL (<200); CHOLESTEROL RISK RATIO 2.70 (<5); CREATININE FOR GFR 0.81 MG/DL (0.55-1.30); GLOMERULAR FILTRATION RATE 76.1 (>39); LDL CHOLESTEROL 98.2 MG/DL (<100); NON-HDL-C 114.6 MG/DL; POTASSIUM SERUM 4.1 MMOL/L (3.5-5.1); SODIUM LEVEL 143 MMOL/L (136-145); TRIGLYCERIDES LEVEL 82 MG/DL (<150)
[2024-12-15 13:26] LABS: ESTRADIOL < 19.0 PG/ML
== END ==
LOC: M WUC 09:46
PROVIDERS: ATTEND Nurse Practitioner Adult Health
DX: E03.9 Hypothyroidism, unspecified (principal); E78.5 Hyperlipidemia, unspecified; M32.9 Systemic lupus erythematosus, unspecified; Z79.890 Hormone replacement therapy

== ENCOUNTER → 2024-12-18 | Outpatient (REF) | payer MEDICARE, OTHER ==
[2024-12-18 18:05] LABS: APPEARANCE, URINE CLEAR (CLEAR); BACTERIA, URINE AUTO NEGATIVE (NEGATIVE); BILIRUBIN, URINE AUTO NEGATIVE (NEGATIVE); BLOOD, URINE BLOOD 1+ (NEGATIVE); GLUCOSE, URINE (UA) AUTO NEGATIVE (NEGATIVE); KETONE, URINE AUTO NEGATIVE (NEGATIVE); LEUKOCYTE ESTERASE, URINE AUTO TRACE (NEGATIVE); MUCUS, URINE SMALL (NEGATIVE); NITRITE, URINE AUTO NEGATIVE (NEGATIVE); PROTEIN, URINE AUTO NEGATIVE (NEGATIVE); RBC, URINE AUTO 1 /HPF (0-3); SPECIFIC GRAVITY URINE AUTO 1.002 (1.002-1.035); SQUAMOUS EPITHELIAL CELL UR AU 0 /HPF (0-6); UROBILINOGEN, URINE AUTO 0.2 mg/dL (0.0-2.0); WBC, URINE AUTO 5 /HPF (0-3)
== END ==
LOC: M LAB REF 17:38
PROVIDERS: ATTEND Physician Assistant Medical
DX: N39.0 Urinary tract infection, site not specified (principal)

== ENCOUNTER → 2024-12-24 | Outpatient (CLI) | payer MEDICARE, OTHER | LOC: M WUC 12:45 | PROVIDERS: ATTEND Family Medicine | DX: M47.26 Other spondylosis with radiculopathy, lumbar region (principal) ==